=== PATIENT | female | born 1940 | race Caucasian/White ===

== ENCOUNTER → 2018-12-01 13:50 | Outpatient (CLI) | payer OTHER, SELFPAY ==
--- NOTE | 2018-12-15 16:16 | P.HOLT.S_ITS ---
Accounts Supervisor Report Referral & Results Date Patient Seen: 12/01/18 Requesting provider: Shawanda Escalera Indication: Palpitations Duration of monitoring (days): 8 Diary information: There is 1 patient diary entry associated with sinus rhythm, PACs and PVCs within 45 seconds of entry There 5 patient triggered events associated with sinus rhythm, PACs, PVCs, and SVT/ectopic atrial tachycardia within 45 seconds of triggers Data: Minimum heart rate identified was 43 beats per minute at 09:22 on 12/05/2018 Maximum sinus heart rate was 111 beats per minute at 07:59 on 12/06/2018 Maximum overall heart rate was 171 beats per minute at 00:37 on 12/03/2018 which occurred during a 4 beat run of SVT Patient had approximately 3% of identified beats as PACs Patient had rare PVCs SVT/ectopic atrial rhythms were present with 18 runs occurring longest lasting 17 beats Impression: Patient with PACs and PVCs both connected to diary entries and/or triggered events. Patient with other dysrhythmia as above. Difficult to sort out 1 specific etiology for patient's reported symptoms of palpitations Clinical correlation suggested
== END ==
PROVIDERS: PCP Family Medicine; Visit Provider Family Medicine
DX: R00.2 Palpitations (principal)
CPT/HCPCS: 0296T; 0298T

== ENCOUNTER → 2019-01-03 10:56 | Outpatient (CLI) | payer OTHER, SELFPAY | PROVIDERS: PCP Family Medicine; Visit Provider Family Medicine ==

== ENCOUNTER → 2019-02-09 12:37 | Outpatient (CLI) | payer OTHER, SELFPAY ==
[2019-02-09 13:12] LABS: Erythrocyte Sedimentation Rate 29 MM/HR (0-20)
[2019-02-09 13:21] LABS: Blood Urea Nitrogen 15 mg/dL (7-17); Carbon Dioxide 29 mmol/L (22-32); Chloride 102 mmol/L (98-107); Estimated Glomerular Filt Rate > 60.0 mL/min (>60); Glucose 92 mg/dL (80-110); HEMOLYSIS < 15 (0-50); Potassium 4.6 mmol/L (3.4-5.1); Sodium 138 mmol/L (137-145)
== END ==
PROVIDERS: Family Provider Hospitalist; PCP Family Medicine; Visit Provider Family Medicine
DX: Z01.812 Encounter for preprocedural laboratory examination (principal); M79.10 Myalgia, unspecified site
CPT/HCPCS: 36415; 80048; 85651

== ENCOUNTER → 2019-02-22 12:05 | Outpatient (CLI) | payer OTHER, SELFPAY ==
--- NOTE | 2019-02-22 12:07 | DI.CT.S_ITS ---
PROCEDURE: CT CHEST W CON INDICATIONS: lung nodule TECHNIQUE: After the administration of intravenous contrast, 5 mm thick sections acquired from the pulmonary apices to the posterior costophrenic angles. 1 mm axial lung, 5 mm thick coronal and sagittal reformats and 7 mm axial MIP were acquired. For radiation dose reduction, the following was used: automated exposure control, adjustment of mA and/or kV according to patient size. COMPARISON: [facility], CR, CHEST 2 VIEW, 03/13/2012, 16:07. Outside Facility, RG, XR CXR 2V, 11/27/2018, 14:15. FINDINGS: Image quality: Excellent. Lungs and pleura: No acute consolidation. Scattered scarring/atelectasis. Round 1.7 x 1.5 cm nodule seen within the posterior right upper lobe adjacent to the fissure. This was present on prior comparison radiographs dating back to 03/13/12. No pleural effusions or pneumothorax. Central and peripheral airways are patent and normal in caliber. Mediastinum: Heart size is enlarged. Coronary artery calcifications are present. No pericardial effusion. No mediastinal or hilar adenopathy by size criteria. Thoracic aorta and central pulmonary arteries are normal in size. Esophagus is normal in caliber. No hiatal hernia. Bones and chest wall: No suspicious bony lesions. No vertebral body compression fractures. No axillary or supraclavicular adenopathy by size criteria. Abdomen: Visualized upper abdominal solid organs appear normal. Upper abdominal bowel loops are normal in caliber. IMPRESSION: Unchanged right upper lobe pulmonary nodule dating back to 03/13/12 therefore presumed benign granulomatous sequela. Dictated by: Deangelo Esparza M.D. on 02/22/2019 at 15:38 Approved by: Deangelo Esparza M.D. on 02/22/2019 at 15:48
== END ==
PROVIDERS: PCP Family Medicine; Visit Provider Family Medicine
DX: R91.1 Solitary pulmonary nodule (principal); I51.7 Cardiomegaly; I25.10 Atherosclerotic heart disease of native coronary artery without angina pectoris
CPT/HCPCS: 71260; Q9967

== ENCOUNTER → 2019-07-25 14:22 | Outpatient (CLI) | payer OTHER, SELFPAY ==
--- NOTE | 2019-07-25 14:23 | DI.MG.S_ITS ---
BILATERAL DIGITAL SCREENING MAMMOGRAM 3D/2D WITH CAD: 07/25/2019 CLINICAL: Routine screening. Family history of breast cancer. Comparison is made to exams dated: 01/28/2018 mammogram, 01/15/2017 mammogram, and 10/09/2015 mammogram - [facility]. There are scattered fibroglandular elements in both breasts. Current study was also evaluated with a Computer Aided Detection (CAD) system. No significant masses, calcifications, or other findings are seen in either breast. There has been no significant interval change. IMPRESSION: NEGATIVE There is no mammographic evidence of malignancy. A 1 year screening mammogram is recommended. This exam was interpreted at Station ID: [id number]. NOTE: For mammograms, a report in lay terms will be sent to the patient. Approximately 15% of breast malignancies will not be visualized mammographically. In the management of a palpable breast mass, a negative mammogram must not discourage biopsy of a clinically suspicious lesion. Electronically Signed By: Jin schreiber/valeria:07/25/2019 18:10:46 letter sent: Normal Exam ACR BI-RADS Category 1: Negative 3341F
== END ==
PROVIDERS: PCP Family Medicine; Visit Provider Family Medicine
DX: Z12.31 Encounter for screening mammogram for malignant neoplasm of breast (principal); Z80.3 Family history of malignant neoplasm of breast; M85.852 Other specified disorders of bone density and structure, left thigh; Z78.0 Asymptomatic menopausal state; M35.3 Polymyalgia rheumatica; E07.9 Disorder of thyroid, unspecified; Z79.52 Long term (current) use of systemic steroids; Z90.722 Acquired absence of ovaries, bilateral
CPT/HCPCS: 77063; 77067; 77080

== ENCOUNTER → 2020-03-08 13:49 | Outpatient (CLI) | payer MEDICARE, SELFPAY ==
[2020-03-08 16:40] LABS: Alanine Aminotransferase 23 IU/L (<35); Albumin 4.3 g/dL (3.5-5.0); Albumin Globulin Ratio 1.5 (1.0-2.8); Alkaline Phosphatase 72 U/L (38-126); Aspartate Aminotransferase 30 IU/L (14-36); BUN Creatinine Ratio 21.3 (6-22); Bilirubin Total 0.7 mg/dL (0.2-1.3); Blood Urea Nitrogen 13 mg/dL (7-17); Calcium 9.5 mg/dL (8.4-10.2); Carbon Dioxide 27 mmol/L (22-32); Chloride 103 mmol/L (98-107); Cholesterol 188 mg/dL (140-199); Estimated Glomerular Filt Rate > 60.0 mL/min (>60); Globulin 2.9 g/dL (1.7-4.1); Glucose 115 mg/dL (80-110); HDL Cholesterol 63 mg/dL (40-60); HEMOLYSIS < 15 (0-50); LDL Cholesterol Calculated 102 mg/dL (<100); Potassium 4.1 mmol/L (3.4-5.1); Sodium 137 mmol/L (137-145); Total Protein 7.2 g/dL (6.3-8.2); Triglycerides 114 mg/dL (35-150)
[2020-03-08 17:06] LABS: TSH w/ Reflex to FT4 2.08 uIU/mL (0.47-4.68)
== END ==
PROVIDERS: PCP Family Medicine; Referring Provider Family Medicine; Visit Provider Family Medicine
DX: Z12.11 Encounter for screening for malignant neoplasm of colon (principal); Z13.220 Encounter for screening for lipoid disorders; Z13.228 Encounter for screening for other metabolic disorders; Z13.29 Encounter for screening for other suspected endocrine disorder; E78.5 Hyperlipidemia, unspecified; E03.9 Hypothyroidism, unspecified
CPT/HCPCS: 36415; 80053; 80061; 84443

== ENCOUNTER → 2020-03-13 15:46 | Outpatient (CLI) | payer MEDICARE, SELFPAY ==
[2020-03-14 10:17] LABS: Fecal Immunochemical Test Negative (Negative)
== END ==
PROVIDERS: PCP Family Medicine; Referring Provider Family Medicine; Visit Provider Family Medicine
DX: Z12.11 Encounter for screening for malignant neoplasm of colon (principal); Z13.220 Encounter for screening for lipoid disorders; Z13.228 Encounter for screening for other metabolic disorders; Z13.29 Encounter for screening for other suspected endocrine disorder
CPT/HCPCS: 82274

== ENCOUNTER → 2020-12-17 13:20 | Outpatient (ROUT) | payer MEDICARE, SELFPAY ==
[2020-12-17 15:56] LABS: Occult Blood 1 Negative (Negative)
[2020-12-17 17:03] LABS: Clostridium Difficile Tox PCR Negative for C. diff
== END ==
PROVIDERS: PCP Family Medicine; Visit Provider Registered Nurse Diabetes Educator
DX: K52.9 Noninfective gastroenteritis and colitis, unspecified (principal)
CPT/HCPCS: 82270; 87045; 87177; 87493; 87899

== ENCOUNTER → 2021-03-14 09:01 | Outpatient (CLI) | payer MEDICARE, SELFPAY ==
[2021-03-14 10:29] LABS: Add Manual Diff / Slide Review NO; Basophils Absolute Auto 0 /uL (0-100); Basophils Percent Auto 0.7 % (0-2); Eosinophils Absolute Auto 300 /uL (0-450); Eosinophils Percent Auto 5.1 % (2-4); Hematocrit 38.7 % (36-46); Hemoglobin 13.2 g/dL (12.0-16.0); Lymphocytes Absolute Auto 1500 /uL (1100-4500); Lymphocytes Percent Auto 24.1 % (25-40); Mean Corpuscular HGB Conc 34.1 % (30-36); Mean Corpuscular Hemoglobin 30.7 PG (26-34); Monocytes Absolute Auto 600 /uL (0-900); Monocytes Percent Auto 8.8 % (3-14); Neutrophils Absolute Auto 3900 /uL (1500-7000); Neutrophils Percent Auto 61.3 % (50-75); Platelet Count 255 X10^3/uL (150-400); White Blood Cell Count 6.4 X10^3/uL (4.5-11.0)
[2021-03-14 11:02] LABS: Erythrocyte Sedimentation Rate 18 MM/HR (0-20)
[2021-03-14 11:30] LABS: Alanine Aminotransferase 21 IU/L (<35); Albumin 4.3 g/dL (3.5-5.0); Albumin Globulin Ratio 1.7 (1.0-2.8); Alkaline Phosphatase 70 U/L (38-126); Aspartate Aminotransferase 29 IU/L (14-36); BUN Creatinine Ratio 27.8 (6-22); Bilirubin Total 0.5 mg/dL (0.2-1.3); Blood Urea Nitrogen 15 mg/dL (7-17); C-Reactive Protein Quant 0.5 mg/dL (<1.0); Calcium 9.5 mg/dL (8.4-10.2); Carbon Dioxide 26 mmol/L (22-32); Chloride 104 mmol/L (98-107); Cholesterol 256 mg/dL (140-199); Estimated Glomerular Filt Rate > 60.0 mL/min (>60); Globulin 2.6 g/dL (1.7-4.1); Glucose 117 mg/dL (80-110); HDL Cholesterol 81 mg/dL (40-60); HEMOLYSIS < 15 (0-50); LDL Cholesterol Calculated 158 mg/dL (<100); Potassium 4.8 mmol/L (3.4-5.1); Sodium 137 mmol/L (137-145); Total Protein 6.9 g/dL (6.3-8.2); Triglycerides 86 mg/dL (35-150)
[2021-03-14 12:22] LABS: Free T4, Direct Thyroxine 1.43 ng/dL (0.78-2.19)
== END ==
PROVIDERS: PCP Family Medicine; Referring Provider Family Medicine; Visit Provider Family Medicine
DX: E03.9 Hypothyroidism, unspecified (principal); E78.5 Hyperlipidemia, unspecified; I49.3 Ventricular premature depolarization; M35.3 Polymyalgia rheumatica
CPT/HCPCS: 36415; 80053; 80061; 84439; 84443; 85025; 85651; 86140

== ENCOUNTER → 2021-03-24 12:59 | Outpatient (CLI) | payer MEDICARE, SELFPAY ==
--- NOTE | 2021-03-24 13:00 | DI.US.S_ITS ---
PROCEDURE: US EXTREMITY NONVASC UPPER LT INDICATIONS: LEFT WRIST NODULE TECHNIQUE: Real-time scanning was performed of the left wrist , with image documentation. COMPARISON: None. FINDINGS: Overall, no sonographic correlate to the palpable abnormality involving the base of thumb. There is a simple appearing fluid adjacent to the tendinous region raising the possibility of tenosynovitis. IMPRESSION: No discrete mass identified. Small amount of peritendinous fluid most likely related to tenosynovitis. This could be further evaluated with dedicated MRI as clinically necessary. Dictated by: Deangelo Esparza M.D. on 03/24/2021 at 14:14 Approved by: Deangelo Esparza M.D. on 03/24/2021 at 14:15
== END ==
PROVIDERS: PCP Family Medicine; Referring Provider Family Medicine; Visit Provider Family Medicine
DX: R22.32 Localized swelling, mass and lump, left upper limb (principal)
CPT/HCPCS: 76882

== ENCOUNTER → 2021-04-23 17:35 | Outpatient (CLI) | payer MEDICARE, SELFPAY ==
--- NOTE | 2021-04-23 17:38 | DI.CT.S_ITS ---
PROCEDURE: CT UE LT WO CON INDICATIONS: left wrist swelling TECHNIQUE: Noncontrast 1 mm axial sections acquired through the carpal bones, with coronal and sagittal reformats. COMPARISON: [facility], , EXTREMITY NONVASC UPPER LT, 03/24/2021, 13:05. FINDINGS: Image quality: Excellent. Bones: Wrist alignment is anatomic. Moderate osteoarthritic changes throughout wrist joints are seen most prominent involving scaphoid trapezial joint and 1st CMC joint with significant joint space narrowing, extensive subchondral sclerosis and cyst formation as well as prominent marginal osteophyte formation. Nonspecific subcortical cyst formation in distal radius, lunate, proximal capitate, distal scaphoid and adjacent trapezium as well as 1st metacarpal base are seen. No evidence of osteonecrosis. No acute fracture or dislocation. No suspicious intraosseous lesion. Soft tissues: No discrete soft tissue mass or drainable fluid collection is seen. Fluid within tendon sheath of extensor carpi ulnaris tendon adjacent to ulnar styloid is noted suggestive of tenosynovitis. There is also small amount of radiocarpal and ulnar carpal joint fluid, no calcified intra-articular loose body. No abnormal soft tissue calcifications. There is also suggestion of small amount of fluid distending tendon sheath of flexor tendons at the level of carpal tunnel which may indicate tenosynovitis. No gross full-thickness tendon rupture is seen. IMPRESSION: 1. Finding is concerning for tenosynovitis involving extensor carpi ulnaris tendon as well as flexor tendons as above. No full-thickness tendon rupture. No abnormal soft tissue calcifications. Small amount of radiocarpal and ulnar carpal joint fluid, no calcified intra-articular loose body. 2. No discrete soft tissue mass or drainable fluid collection is identified. 3. Osteoarthritic changes throughout wrist joints as above. Nonspecific subcortical cyst formation scattered in carpal bones and metacarpal bases, erosion secondary to inflammatory arthropathy cannot be excluded. No suspicious intraosseous lesion. No fracture or dislocation. Dictated by: Weston Eason M.D. on 04/24/2021 at 9:01 Approved by: Weston Eason M.D. on 04/24/2021 at 9:54
--- NOTE | 2021-04-23 17:38 | DI.MG.S_ITS ---
BILATERAL DIGITAL SCREENING MAMMOGRAM 3D/2D WITH CAD: 04/23/2021 CLINICAL: Routine screening. Family history of breast cancer. Comparison is made to exams dated: 07/25/2019 mammogram - [facility], 01/28/2018 mammogram, and 01/15/2017 mammogram - [facility]. There are scattered fibroglandular elements in both breasts. Current study was also evaluated with a Computer Aided Detection (CAD) system. There is a stable benign focal asymmetry in the left breast. No significant masses, calcifications, or other findings are seen in either breast. There has been no significant interval change. IMPRESSION: BENIGN There is no mammographic evidence of malignancy. A 1 year screening mammogram is recommended. This exam was interpreted at Station ID: [id number]. NOTE: For mammograms, a report in lay terms will be sent to the patient. Approximately 15% of breast malignancies will not be visualized mammographically. In the management of a palpable breast mass, a negative mammogram must not discourage biopsy of a clinically suspicious lesion. Electronically Signed By: Rhett Parker acr/penrad:04/24/2021 08:04:11 letter sent: Normal Exam ACR BI-RADS Category 2: Benign Finding(s) 3342F
== END ==
PROVIDERS: PCP Family Medicine; Referring Provider Family Medicine; Visit Provider Family Medicine
DX: Z12.31 Encounter for screening mammogram for malignant neoplasm of breast (principal); Z80.3 Family history of malignant neoplasm of breast; R22.32 Localized swelling, mass and lump, left upper limb; E03.9 Hypothyroidism, unspecified; E78.5 Hyperlipidemia, unspecified; I10 Essential (primary) hypertension
CPT/HCPCS: 73200; 77063; 77067

== ENCOUNTER → 2021-06-05 08:04 | Outpatient (CLI) | payer MEDICARE, SELFPAY ==
[2021-06-05 08:49] LABS: Alanine Aminotransferase 20 IU/L (<35); Albumin 4.2 g/dL (3.5-5.0); Albumin Globulin Ratio 1.6 (1.0-2.8); Alkaline Phosphatase 68 U/L (38-126); Aspartate Aminotransferase 30 IU/L (14-36); BUN Creatinine Ratio 20.4 (6-22); Bilirubin Total 0.6 mg/dL (0.2-1.3); Blood Urea Nitrogen 11 mg/dL (7-17); Calcium 9.3 mg/dL (8.4-10.2); Carbon Dioxide 26 mmol/L (22-32); Chloride 105 mmol/L (98-107); Estimated Glomerular Filt Rate > 60.0 mL/min (>60); Globulin 2.6 g/dL (1.7-4.1); Glucose 123 mg/dL (80-110); HEMOLYSIS < 15 (0-50); Potassium 4.3 mmol/L (3.4-5.1); Sodium 139 mmol/L (137-145); Total Protein 6.8 g/dL (6.3-8.2)
[2021-06-05 09:57] LABS: TSH w/ Reflex to FT4 1.22 uIU/mL (0.47-4.68)
== END ==
PROVIDERS: PCP Family Medicine; Referring Provider Family Medicine; Visit Provider Family Medicine
DX: E03.9 Hypothyroidism, unspecified (principal); E78.5 Hyperlipidemia, unspecified; I47.1 Supraventricular tachycardia; K52.9 Noninfective gastroenteritis and colitis, unspecified
CPT/HCPCS: 36415; 80053; 84443

== ENCOUNTER → 2022-06-26 11:05 | Outpatient (CLI) | payer MEDICARE, SELFPAY ==
[2022-06-26 11:52] LABS: Add Manual Diff / Slide Review NO; Basophils Absolute Auto 0 /uL (0-100); Basophils Percent Auto 0.8 % (0-2); Eosinophils Absolute Auto 200 /uL (0-450); Eosinophils Percent Auto 3.3 % (2-4); Hematocrit 37.7 % (36-46); Hemoglobin 12.6 g/dL (12.0-16.0); Lymphocytes Absolute Auto 1600 /uL (1100-4500); Lymphocytes Percent Auto 36.2 % (25-40); Mean Corpuscular HGB Conc 33.3 % (30-36); Mean Corpuscular Hemoglobin 30.3 PG (26-34); Mean Corpuscular Volume 90.9 fL (80-100); Monocytes Absolute Auto 400 /uL (0-900); Monocytes Percent Auto 9.4 % (3-14); Neutrophils Absolute Auto 2300 /uL (1500-7000); Neutrophils Percent Auto 50.3 % (50-75); Platelet Count 286 X10^3/uL (150-400); Red Blood Cell Count 4.15 X10^6/uL (4.0-5.2); Red Cell Distribution Width 13.6 % (11.6-14.8); White Blood Cell Count 4.5 X10^3/uL (4.5-11.0)
[2022-06-26 12:39] LABS: Alanine Aminotransferase 26 IU/L (<35); Albumin 4.1 g/dL (3.5-5.0); Albumin Globulin Ratio 1.5 (1.0-2.8); Alkaline Phosphatase 78 U/L (38-126); Aspartate Aminotransferase 29 IU/L (14-36); BUN Creatinine Ratio 17.2 (6-22); Bilirubin Total 0.6 mg/dL (0.2-1.3); Blood Urea Nitrogen 10 mg/dL (7-17); Calcium 8.9 mg/dL (8.4-10.2); Carbon Dioxide 29 mmol/L (22-32); Chloride 104 mmol/L (98-107); Cholesterol 179 mg/dL (140-199); Estimated Glomerular Filt Rate > 60 mL/min (>60); Globulin 2.7 g/dL (1.7-4.1); Glucose 109 mg/dL (80-110); HDL Cholesterol 69 mg/dL (40-60); HEMOLYSIS < 15 (0-50); LDL Cholesterol Calculated 92 mg/dL (<100); Potassium 4.3 mmol/L (3.4-5.1); Sodium 139 mmol/L (137-145); Total Protein 6.8 g/dL (6.3-8.2); Triglycerides 88 mg/dL (35-150)
[2022-06-26 13:08] LABS: TSH w/ Reflex to FT4 0.69 uIU/mL (0.47-4.68)
== END ==
PROVIDERS: PCP Family Medicine; Referring Provider Family Medicine; Visit Provider Family Medicine
DX: E03.9 Hypothyroidism, unspecified (principal); E78.5 Hyperlipidemia, unspecified; I10 Essential (primary) hypertension
CPT/HCPCS: 36415; 80053; 80061; 84443; 85025

== ENCOUNTER → 2022-07-08 08:58 | Outpatient (CLI) | payer MEDICARE, SELFPAY ==
[2022-07-08 09:56] LABS: COVID19 -Nasal RAPID Negative (Negative)
--- NOTE | 2022-07-08 18:22 | DI.NM.S_ITS ---
DATE OF SERVICE: PROCEDURE: Pharmacological perfusion study. INDICATION: Paroxysmal atrial fibrillation with underlying left bundle-branch block. RADIOPHARMACEUTICAL: 26.7 mCi technetium-99m Myoview IV was injected at stress and 11.5 mCi technetium-99m Myoview IV was injected at rest. CARDIAC STRESS: The patient underwent IV Lexiscan perfusion study under the supervision of an attending staff using standard intravenous Lexiscan as per protocol. Baseline blood pressure 126/84. Baseline rhythm sinus with left bundle-branch block and PACs. During IV Lexiscan, no new convincing ischemic changes seen. The patient has occasional PVCs. No ventricular tachycardia or obvious Afib. No chest pain. Had minimal dyspnea. RAW DATA: Breast shadow was seen. GATED STUDY: Stress LV ejection fraction 70 percent without any obvious wall motion abnormalities. Resting end-diastolic volume 121 mL. TID ratio 0.82, which is within normal limits. Lung/heart ratio 0.44, which is within normal limits. MYOCARDIAL PERFUSION SCAN: Stress supine, resting supine and stress prone images were compared to each other. Resting supine images revealed small to moderate size, moderately decreased perfusion of apex, distal anterior wall with extension into the distal anterior septum. The stress supine images revealed small size, mildly decreased perfusion of basal inferior wall, apex as well as distal anterior septum. During stress prone images, there was significant improvement of the perfusion defect as stated above. Apical perfusion defects improved. Basal inferior wall defect improved. The patient had mildly decreased perfusion of distal anterior septum. No reversible ischemia. CONCLUSION: I will call this study likely a normal myocardial perfusion study with evidence of breast tissue attenuation artifact as well as some artifact due to left bundle-branch block, which got significantly improved during stress prone images. No convincing ischemia or infarction. Preserved left ventricular function. No transient ischemic dilatation. Overall low-risk myocardial perfusion scan. Gayathri Ho - TETO/james/GRIS doc#: [id number]/job#: [id number] dd: 07/08/2022 16:55:00 dt: 07/08/2022 18:07:00 DICTATING MD/COPIES TO: Homero Mccormack MD COPIES MNE: JAMES;
== END ==
PROVIDERS: PCP Family Medicine; Referring Provider Nurse Practitioner; Visit Provider Nurse Practitioner
DX: I44.7 Left bundle-branch block, unspecified; I48.0 Paroxysmal atrial fibrillation; Z20.822 Contact with and (suspected) exposure to COVID-19
CPT/HCPCS: 78452; 87635; 93017; A9502; J2785

== ENCOUNTER → 2022-08-24 09:33 | Outpatient (CLI) | payer MEDICARE, SELFPAY ==
[2022-08-24 10:45] LABS: Hemoglobin A1C% w Est Avg Glu 5.9 % (4.0-6.0)
[2022-08-24 10:48] LABS: Alanine Aminotransferase 23 IU/L (<35); Albumin 4.3 g/dL (3.5-5.0); Albumin Globulin Ratio 1.5 (1.0-2.8); Alkaline Phosphatase 80 U/L (38-126); Aspartate Aminotransferase 22 IU/L (14-36); BUN Creatinine Ratio 22.5 (6-22); Bilirubin Total 0.7 mg/dL (0.2-1.3); Blood Urea Nitrogen 16 mg/dL (7-17); Calcium 9.4 mg/dL (8.4-10.2); Carbon Dioxide 27 mmol/L (22-32); Chloride 98 mmol/L (98-107); Estimated Glomerular Filt Rate > 60 mL/min (>60); Globulin 2.8 g/dL (1.7-4.1); Glucose 130 mg/dL (80-110); HEMOLYSIS < 15 (0-50); Potassium 4.5 mmol/L (3.4-5.1); Sodium 135 mmol/L (137-145); Total Protein 7.1 g/dL (6.3-8.2)
== END ==
PROVIDERS: PCP Family Medicine; Referring Provider Family Medicine; Visit Provider Family Medicine
DX: R73.9 Hyperglycemia, unspecified (principal); E03.9 Hypothyroidism, unspecified; I10 Essential (primary) hypertension; I35.0 Nonrheumatic aortic (valve) stenosis; I48.91 Unspecified atrial fibrillation; I49.3 Ventricular premature depolarization
CPT/HCPCS: 36415; 80053; 83036

== ENCOUNTER → 2023-06-05 | Outpatient (CLI) | payer MEDICARE, SELFPAY ==
--- NOTE | 2023-06-05 11:19 | DI.MG.S_ITS ---
BILATERAL DIGITAL SCREENING MAMMOGRAM 3D/2D WITH CAD: 06/05/2023 CLINICAL: Routine screening. Family history of breast cancer. Comparison is made to exams dated: 04/23/2021 mammogram, 07/25/2019 mammogram - [facility], and 01/28/2018 mammogram - [facility]. There are scattered areas of fibroglandular density in both breasts (category b / 25%-50% glandular tissue). Current study was also evaluated with a Computer Aided Detection (CAD) system. No significant masses, calcifications, or other findings are seen in either breast. IMPRESSION: NEGATIVE There is no mammographic evidence of malignancy. A 1 year screening mammogram is recommended. Based on the Tyrer Cuzick model (a risk assessment model) the patient's lifetime risk is 1.4% and her 10 year risk is 0.0%. According to the ACR, ACS, and NCCN guidelines, an annual breast MRI exam along with mammogram is recommended if the patient's lifetime risk is 20% or greater. This exam was interpreted at Station ID: [id number]. NOTE: For mammograms, a report in lay terms will be sent to the patient. Approximately 15% of breast malignancies will not be visualized mammographically. In the management of a palpable breast mass, a negative mammogram must not discourage biopsy of a clinically suspicious lesion. Electronically Signed By: Grace Lares M.D., PH.D david/valeria:06/07/2023 19:31:17 letter sent: Normal Exam ACR BI-RADS Category 1: Negative 3341F
== END ==
LOC: MAMMO 11:18
PROVIDERS: PCP Family Medicine; Referring Provider Family Medicine; Visit Provider Family Medicine
DX: Z12.31 Encounter for screening mammogram for malignant neoplasm of breast (principal); Z80.3 Family history of malignant neoplasm of breast
CPT/HCPCS: 77063; 77067

== ENCOUNTER 2023-07-20 19:08 | Emergency (ER) | payer MEDICARE, SELFPAY ==
[2023-07-20] VITALS (9 sets, daily range): BP systolic 137–193; BP diastolic 63–79; PULSE 65–79; RESP 18; TEMP 36.8; O2SAT 96–100; BMI 26.3
--- NOTE | 2023-07-20 19:16 | DI.CT.S_ITS ---
PROCEDURE: CT CERVICAL SPINE WO CON INDICATIONS: fall on thinners TECHNIQUE: Noncontrast 3 mm thick sections acquired from the skull base to the T4 level. Sagittal and coronal reformats were then constructed. For radiation dose reduction, the following was used: automated exposure control, adjustment of mA and/or kV according to patient size. COMPARISON: None. FINDINGS: Image quality: Excellent. Bones: No acute fractures or dislocations. No acute compression fractures of the vertebral bodies. Craniocervical junction is intact. C1-C2 relationship is preserved. Visualized superior ribs are intact. Advanced multilevel cervical spondylosis with partial osseous fusion across C3 through C5. No asymmetric widening of the posterior elements. Soft tissues: Prevertebral soft tissues are normal in thickness. No paravertebral hematomas. No apical pneumothoraces. IMPRESSION: No displaced fracture or traumatic subluxation. Dictated by: Joshua Smith M.D. on 07/20/2023 at 20:39 Approved by: Joshua Smith M.D. on 07/20/2023 at 20:42
--- NOTE | 2023-07-20 19:16 | DI.CT.S_ITS ---
PROCEDURE: CT HEAD/BRAIN WO CON INDICATIONS: fall on thinners TECHNIQUE: Noncontrast 4.5 mm thick angled axial sections acquired from the foramen magnum to the vertex, with coronal and sagittal reformats. For radiation dose reduction, the following was used: automated exposure control, adjustment of mA and/or kV according to patient size. COMPARISON: None. FINDINGS: Image quality: Diagnostic. CSF spaces: Basal cisterns are patent. No extra-axial fluid collections. The ventricles are symmetric in size and shape. Brain: No intracranial bleeds or masses. There is cerebral volume loss for age, with resultant ventricular and sulcal prominence. There are periventricular and deep white matter chronic small vessel ischemic changes. There is intracranial internal carotid artery atherosclerosis. Skull and face: Calvarium and visualized facial bones appear intact, without suspicious lesions. Sinuses: Visualized sinuses and mastoids are clear. IMPRESSION: 1. CT head without acute intracranial abnormalities or acute calvarial fractures. 2. Age-related senescent changes and sequela of chronic small vessel ischemic disease. Dictated by: Joshua Smith M.D. on 07/20/2023 at 20:37 Approved by: Joshua Smith M.D. on 07/20/2023 at 20:39
--- NOTE | 2023-07-20 20:08 | PC.NURSE ---
Pt has bump just above right eyebrow. no wound visible but does have minor discoloration to area.
--- NOTE | 2023-07-20 21:11 | ED_ITS ---
HPI - Fall General Chief Complaint: Fall Stated Complaint: GLF rknee and head on blood thinners Time Seen by Provider: 07/20/23 19:33 Source: patient Mode of arrival: Ambulatory History of Present Illness HPI Narrative: Patient is an 82-year-old female. Is on anticoagulation. Is here for evaluation of pain to her right knee and also a bruise above her right eye after she fell and hit her head. No neck pain. No other extremity injuries. No loss of consciousness. At the time of my exam she has already had CT scans. She has full range motion of her right knee. Is ambulatory. Related Data Home Medications Medication Instructions Recorded Confirmed apixaban 5 mg tablet (Eliquis) 5 mg PO BID 08/06/22 06/28/23 losartan 25 mg tablet 25 mg PO DAILY 04/13/23 06/28/23 Previous Rx's Medication Instructions Recorded levothyroxine 137 mcg tablet See Rx Instructions .Route 09/28/22 .COMPLEX #90 tabs atorvastatin 20 mg tablet See Rx Instructions .Route 12/07/22 .COMPLEX #90 tabs metoprolol succinate 50 mg 50 mg PO BID #60 tabs 03/16/23 tablet,extended release 24 hr cephalexin 500 mg capsule 500 mg PO Q8H #30 caps 06/28/23 Lacto no.21-Bifido no.7 50 billion 1 cap PO DAILY #90 caps 07/06/23 cell-inulin 50 mg capsule,delay rel (Fortify Probiotic 50 Plus) melatonin 10 mg tablet 10 mg PO BEDTIME PRN sleep #90 tabs 07/06/23 Allergies Allergy/AdvReac Type Severity Reaction Status Date / Time Iodinated Contrast Media Allergy Rapid Verified 06/28/23 10:01 [Iodinated Contrast- Oral Heart Rate and IV Dye] quinidine AdvReac Mild Verified 06/28/23 10:01 hydrocodone [From Vicodin] AdvReac itchy Verified 06/28/23 10:01 Review of Systems Constitutional Constitutional: Reports system reviewed and no additional complaints, except as documented Eyes Eyes: Reports system reviewed and no additional complaints, except as documented Cardiovascular Cardiovascular: Reports system reviewed and no additional complaints, except as documented Respiratory Respiratory: Reports system reviewed and no additional complaints, except as documented Integumentary/Breasts Skin/Breast: Reports system reviewed and no additional complaints, except as documented Neurologic Neurologic: Reports system reviewed and no additional complaints, except as documented Hematologic/Lymphatic On Anticoagulants: Yes Patient History Medical History Microscopic colitis, unspecified Conjunctivitis Hypokalemia Atrial fibrillation Aortic stenosis Symptomatic PVCs Insomnia Hypothyroidism (acquired) Hyperlipidemia Hypertension Hearing loss Rheumatoid arthritis Osteoarthritis Musculoskeletal problem (~1999) Fibromyalgia (~1999) Mumps Measles Chicken pox (~194) Tinnitus (~1999) Fibroids (~1970) History of urinary incontinence (~2006) Surgical History Anesthesia History of lumpectomy History of hysterectomy (~1994) Status post removal of thyroid nodule (~1970) Family History Father Cancer Mother History of heart disease Brother Cancer Grandfather Cancer Grandmother No problems noted. Grandfather No problems noted. Social History Smoking Status: Never smoker alcohol intake: current substance use type: does not use Smoking Status: Never smoker Substance Use Type: does not use Exam Initial Vital Signs Initial Vital Signs: Vital Signs Temperature 98.3 F 07/20/23 19:11 Pulse Rate 79 07/20/23 19:11 Respiratory Rate 18 07/20/23 19:11 Blood Pressure 193/79 H 07/20/23 19:11 Pulse Oximetry 98 07/20/23 19:11 Oxygen Delivery Method Room Air 07/20/23 19:11 HENMT Head: normal to inspection and normocephalic Eyes Other: Small contusion above the right eye. No step-offs around the orbital rim. Resp Effort & Inspection: normal respiratory effort Cardio Rate: regular rate Skin Other: Small contusion above right eye. Neuro General: patient alert, patient awake, patient oriented x3 and moves all extremities Scores GCS [place] coma scale eye opening: Spontaneous [place] coma scale verbal response: Orientated [place] coma scale motor response: Obey commands [place] coma scale total score: 15 Course Orders Ordered: ED Orders 07/20/23 19:16 CT cervical spine wo con Stat CT head/brain wo con Stat Vital Signs Vital signs: Vital Signs - 8 hr 07/20/23 19:34 07/20/23 19:36 07/20/23 19:36 Pulse Rate 74 71 Respiratory Rate Blood Pressure 156/67 H Pulse Oximetry 100 98 07/20/23 20:00 07/20/23 20:01 07/20/23 20:01 Pulse Rate 68 68 Respiratory Rate 18 Blood Pressure 143/64 H Pulse Oximetry 97 97 07/20/23 20:30 07/20/23 20:31 07/20/23 20:31 Pulse Rate 66 65 Respiratory Rate Blood Pressure 137/63 Pulse Oximetry 96 97 07/20/23 21:00 07/20/23 21:01 07/20/23 21:01 Pulse Rate 78 78 Respiratory Rate 18 Blood Pressure 162/70 H Pulse Oximetry 98 98 MDM - Fall Imaging Data CT - cervical spine: Radiologist's Impression: PROCEDURE: CT CERVICAL SPINE WO CON INDICATIONS: fall on thinners TECHNIQUE: Noncontrast 3 mm thick sections acquired from the skull base to the T4 level. S agittal and coronal reformats were then constructed. For radiation dose reduction, the following was used: automated exposure control, adjustment of mA and/or kV according to patient size. COMPARISON: None. FINDINGS: Image quality: Excellent. Bones: No acute fractures or dislocations. No acute compression fractures of the vertebral bodies. Craniocervical junction is intact. C1-C2 relationship is preserved. Visualized superior ribs are intact. Advanced multilevel cervical spondylosis with partial osseous fusion across C3 through C5. No asymmetric widening of the posterior elements. Soft tissues: Prevertebral soft tissues are normal in thickness. No paravertebral hematomas. No apical pneumothoraces. IMPRESSION: No displaced fracture or traumatic subluxation. CT scan - head: Radiologist's Impression: PROCEDURE: CT HEAD/BRAIN WO CON INDICATIONS: fall on thinners TECHNIQUE: Noncontrast 4.5 mm thick angled axial sections acquired from the foramen magnum to the vertex, with coronal and sagittal reformats. For radiation dose reduction, the following was used: automated exposure control, adjustment of mA and/or kV according to patient size. COMPARISON: None. FINDINGS: Image quality: Diagnostic. CSF spaces: Basal cisterns are patent. No extra-axial fluid collections. The ventricles are symmetric in size and shape. Brain: No intracranial bleeds or masses. There is cerebral volume loss for age, with resultant ventricular and sulcal prominence. There are periventricular and deep white matter chronic small vessel ischemic changes. There is intracranial internal carotid artery atherosclerosis. Skull and face: Calvarium and visualized facial bones appear intact, without suspicious lesions. Sinuses: Visualized sinuses and mastoids are clear. IMPRESSION: 1. CT head without acute intracranial abnormalities or acute calvarial fractures. 2. Age-related senescent changes and sequela of chronic small vessel ischemic disease. MDM Narrative Medical decision making narrative: CT scan of head neck are unremarkable. She does have full range motion of her right knee. No other extremity injuries. Has a small contusion above the right eye. No specific intervention needed here in the ER. Patient states she would like to go home. She was given return precautions. She expressed understanding and agreement. Discharge Plan Departure Patient Disposition: Home Clinical Impression: Contusion Instructions: DI for Contusion Activity Restrictions/Additional Instructions: Continue to take all of your medications as directed. Contact your primary doctor for a follow-up. Return to the emergency department for new or worsening symptoms. Prescriptions: No Action levothyroxine 137 mcg tablet See Rx Instructions .ROUTE .COMPLEX Qty: 90 3RF Dose Instruction: TAKE 1 TABLET BY MOUTH DAILY Rx Instructions: TAKE 1 TABLET BY MOUTH DAILY atorvastatin 20 mg tablet See Rx Instructions .ROUTE .COMPLEX Qty: 90 3RF Dose Instruction: TAKE 1 TABLET BY MOUTH DAILY FOR HYPERCHOLESTEROLEMIA. Rx Instructions: TAKE 1 TABLET BY MOUTH DAILY FOR HYPERCHOLESTEROLEMIA. metoprolol succinate 50 mg tablet extended release 24 hr 50 mg PO BID Qty: 60 3RF Fortify Probiotic 50 Plus 50 billion cell-50 mg capsule,delayed release(DR/EC) 1 cap PO DAILY Qty: 90 3RF Rx Instructions: Take 1 cap daily for microscopic colitis melatonin 10 mg tablet 10 mg PO BEDTIME PRN (Reason: sleep) Qty: 90 3RF Eliquis 5 mg tablet 5 mg PO BID losartan 25 mg tablet 25 mg PO DAILY cephalexin 500 mg capsule 500 mg PO Q8H Qty: 30 0RF Rx Instructions: Take 1 tab by mouth every 8 hours x10 days Referrals: Navin Ramsey MD [Primary Care Provider] - Stand Alone Forms: Patient Portal/API
== END 2023-07-20 21:18 | disposition home or self-care (01) ==
PROVIDERS: Emergency Provider Emergency Medicine; PCP Family Medicine
DX: S00.83XA Contusion of other part of head, initial encounter (principal); M25.561 Pain in right knee; W18.30XA Fall on same level, unspecified, initial encounter; Z79.01 Long term (current) use of anticoagulants
CPT/HCPCS: 70450; 72125; 99281; 99284

== ENCOUNTER → 2023-08-06 11:10 | Outpatient (CLI) | payer OTHER, SELFPAY ==
--- NOTE | 2023-08-06 11:12 | DI.RAD.S_ITS ---
PROCEDURE: XR KNEE LT 3V INDICATIONS: Bilateral Knee pain TECHNIQUE: 3 views of the knee were acquired. COMPARISON: None. FINDINGS: Bones: No fractures or dislocations. No suspicious bony lesions. Tricompartmental arthritic change moderate to severe in the medial compartment which is most prominent. Periarticular osteophytes are present. No erosions. Soft tissues: Mild joint effusion. No suspicious soft tissue calcifications. IMPRESSION: Tricompartmental arthritic change most severe medially. Dictated by: Noris Rendon M.D. on 08/06/2023 at 17:05 Approved by: Noris Rendon M.D. on 08/06/2023 at 17:05
--- NOTE | 2023-08-06 11:12 | DI.RAD.S_ITS ---
PROCEDURE: XR KNEE RT 3V INDICATIONS: Bilateral Knee pain TECHNIQUE: 3 views of the knee were acquired. COMPARISON: None. FINDINGS: Bones: No fractures or dislocations. No suspicious bony lesions. Moderate to severe tricompartmental arthritic change most severe medially. Periarticular osteophytes are present. Soft tissues: No joint effusion. No suspicious soft tissue calcifications. Faint appearance of chondrocalcinosis. IMPRESSION: Tricompartmental arthritic change. Dictated by: Noris Rendon M.D. on 08/06/2023 at 17:04 Approved by: Noris Rendon M.D. on 08/06/2023 at 17:05
[2023-08-06 11:51] LABS: Add Manual Diff / Slide Review NO; Basophils Absolute Auto 0 /uL (0-100); Basophils Percent Auto 0.5 % (0-2); Eosinophils Absolute Auto 200 /uL (0-450); Eosinophils Percent Auto 3.3 % (2-4); Hematocrit 37.7 % (36-46); Hemoglobin 12.8 g/dL (12.0-16.0); Lymphocytes Absolute Auto 1500 /uL (1100-4500); Lymphocytes Percent Auto 23.9 % (25-40); Mean Corpuscular HGB Conc 33.8 % (30-36); Mean Corpuscular Hemoglobin 30.7 PG (26-34); Mean Corpuscular Volume 90.7 fL (80-100); Monocytes Absolute Auto 600 /uL (0-900); Monocytes Percent Auto 9.2 % (3-14); Neutrophils Absolute Auto 3900 /uL (1500-7000); Neutrophils Percent Auto 63.1 % (50-75); Platelet Count 290 X10^3/uL (150-400); Red Blood Cell Count 4.15 X10^6/uL (4.0-5.2); Red Cell Distribution Width 13.3 % (11.6-14.8); White Blood Cell Count 6.2 X10^3/uL (4.5-11.0)
[2023-08-06 11:57] LABS: Hemoglobin A1C% w Est Avg Glu 5.8 % (4.0-6.0)
[2023-08-06 12:07] LABS: Alanine Aminotransferase 27 IU/L (<35); Albumin 4.4 g/dL (3.5-5.0); Albumin Globulin Ratio 1.4 (1.0-2.8); Alkaline Phosphatase 64 U/L (38-126); Aspartate Aminotransferase 31 IU/L (14-36); BUN Creatinine Ratio 19.7 (6-22); Bilirubin Total 0.6 mg/dL (0.2-1.3); Blood Urea Nitrogen 12 mg/dL (7-17); Calcium 9.5 mg/dL (8.4-10.2); Carbon Dioxide 25 mmol/L (22-32); Chloride 102 mmol/L (98-107); Cholesterol 167 mg/dL (140-199); Estimated Glomerular Filt Rate > 60 mL/min (>60); Globulin 3.1 g/dL (1.7-4.1); Glucose 121 mg/dL (80-110); HDL Cholesterol 71 mg/dL (40-60); HEMOLYSIS < 15 (0-50); LDL Cholesterol Calculated 74 mg/dL (<100); Potassium 4.1 mmol/L (3.4-5.1); Sodium 136 mmol/L (137-145); Total Protein 7.5 g/dL (6.3-8.2); Triglycerides 108 mg/dL (35-150)
[2023-08-06 12:36] LABS: TSH w/ Reflex to FT4 0.56 uIU/mL (0.47-4.68)
== END ==
PROVIDERS: PCP Family Medicine; Referring Provider Family Medicine; Visit Provider Family Medicine
DX: M25.561 Pain in right knee (principal); R73.9 Hyperglycemia, unspecified; E03.9 Hypothyroidism, unspecified; I48.91 Unspecified atrial fibrillation; M25.562 Pain in left knee; I35.0 Nonrheumatic aortic (valve) stenosis; E78.5 Hyperlipidemia, unspecified; I10 Essential (primary) hypertension; Z00.00 Encounter for general adult medical examination without abnormal findings
CPT/HCPCS: 36415; 73562; 80053; 80061; 83036; 84443; 85025

== ENCOUNTER 2023-09-08 23:40 | Emergency (ER) | payer OTHER, SELFPAY ==
[2023-09-08 23:40] VITALS: BP 185/79; PULSE 77; RESP 19; TEMP 36.4; O2SAT 97; BMI 26.9
--- NOTE | 2023-09-08 23:41 | ED.GENADULT ---
HPI - General Adult General Chief complaint: Hypertension Stated complaint: hypertension/headache Time Seen by Provider: 09/08/23 23:41 History of Present Illness HPI narrative: 82-year-old woman with a history of atrial fibrillation recent cardiac ablation, currently anticoagulated on apixaban, hyperlipidemia hypertension hypothyroidism and polymyalgia currently on 5 mg of prednisone who presents with elevated blood pressures and a headache that she states started at approximately 8:00 p.m. this evening behind her left cheek feeling like sinus infection. She does not have fevers, cough, chills, body aches or sore throat. She recently was seen by her picking tech and blood pressure medication is currently being adjusted. Apparently she was hospitalized at [facility] sometime in the last 6 months and noted to have low blood pressures at that time. In follow up she has had significantly elevated blood pressures. Her metoprolol 12.5 mg extended release b.i.d. was doubled to 25 mg b.i.d. and her losartan was doubled from 50 mg to 100 mg daily. Both of these changes went into affect today. This evening she ended up taking her blood pressure around midnight noted that it was elevated and called 911 due to her concern. She was not complaining of chest pain or palpitations. She did notice the slight headache/sinus fullness sensation but no other neurologic symptoms. Related Data Home Medications Medication Instructions Recorded Confirmed apixaban 5 mg tablet (Eliquis) 5 mg PO BID 08/06/22 08/26/23 Previous Rx's Medication Instructions Recorded levothyroxine 137 mcg tablet See Rx Instructions .Route 09/28/22 .COMPLEX #90 tabs atorvastatin 20 mg tablet See Rx Instructions .Route 12/07/22 .COMPLEX #90 tabs metoprolol succinate 50 mg 50 mg PO BID #60 tabs 03/16/23 tablet,extended release 24 hr melatonin 10 mg tablet 10 mg PO BEDTIME PRN sleep #90 tabs 07/06/23 cyclobenzaprine 5 mg tablet 5 mg PO BEDTIME PRN muscle spasm 08/26/23 #60 tabs prednisone 5 mg tablet 5 mg PO DAILY #90 tabs 08/26/23 losartan 50 mg tablet 50 mg PO DAILY #90 tabs 08/30/23 Allergies Allergy/AdvReac Type Severity Reaction Status Date / Time Iodinated Contrast Media Allergy Rapid Verified 08/26/23 11:25 [Iodinated Contrast- Oral Heart Rate and IV Dye] quinidine AdvReac Mild Verified 08/26/23 11:25 hydrocodone [From Vicodin] AdvReac itchy Verified 08/26/23 11:25 Review of Systems Review of Systems Narrative: Pertinent positive and negative findings as per HPI Patient History Medical History Microscopic colitis, unspecified Hypokalemia Atrial fibrillation Aortic stenosis Symptomatic PVCs Insomnia Hypothyroidism (acquired) Hyperlipidemia Hypertension Hearing loss Rheumatoid arthritis Osteoarthritis Musculoskeletal problem (~1999) Fibromyalgia (~1999) Mumps Measles Chicken pox (~194) Tinnitus (~1999) Fibroids (~1970) History of urinary incontinence (~2006) Surgical History Anesthesia History of lumpectomy History of hysterectomy (~1994) Status post removal of thyroid nodule (~1970) Family History Father Cancer Mother History of heart disease Brother Cancer Grandfather Cancer Grandmother No problems noted. Grandfather No problems noted. Social History Smoking Status: Never smoker alcohol intake: current substance use type: does not use Smoking Status: Never smoker Substance Use Type: does not use Exam Initial Vital Signs Initial Vital Signs: Vital Signs Temperature 97.5 F L 09/08/23 23:40 Pulse Rate 77 09/08/23 23:40 Respiratory Rate 19 09/08/23 23:40 Blood Pressure 185/79 H 09/08/23 23:40 Pulse Oximetry 97 09/08/23 23:40 Oxygen Delivery Method Room Air 09/08/23 23:40 General: Healthy appearing, in no acute distress. Able to give a complete and coherent history. Well-nourished well-developed HEENT: Moist mucous membranes, normal sclera with reactive pupils, Neck: No JVD, supple Respiratory: Lungs are clear to auscultation, no wheezing no rales no rhonchi. Full and symmetrical air movement Cardiac: Regular rate and rhythm no murmurs no bruits Abdomen: Soft, nontender, good bowel tones, no flank pain Skin: Warm and dry, no rashes Neurologic: Grossly neurologically intact with no obvious asymmetries or abnormalities Extremities: No trauma, well perfused Psych: Cooperative, appropriate insight and affect Course Orders Ordered: ED Orders 09/08/23 23:50 CMP [Comprehensive Metabolic Panel] Stat Complete Blood Count AUTO DIFF Stat Troponin I Stat Discontinued Medications Acetaminophen (Acetaminophen 325 Mg Tablet) 975 mg PO NOW ONE Stop: 09/08/23 23:58 Last Admin: 09/09/23 00:11 Dose: Not Given Documented By: KVNG Acetaminophen (Acetaminophen 325 Mg Tablet) 1,000 mg PO NOW ONE Stop: 09/09/23 00:02 Last Admin: 09/09/23 00:14 Dose: 1,000 mg Documented By: GEMMA Vital Signs Vital signs: Vital Signs - 8 hr 09/08/23 23:40 09/08/23 23:47 09/09/23 00:00 Temperature 97.5 F L Pulse Rate 77 72 Respiratory Rate 19 Blood Pressure 185/79 H 172/83 H Pulse Oximetry 97 99 Oxygen Delivery Method Room Air 09/09/23 00:00 09/09/23 00:30 09/09/23 00:30 Temperature Pulse Rate 73 70 Respiratory Rate Blood Pressure 183/72 H Pulse Oximetry 99 98 Oxygen Delivery Method Room Air Room Air Medical Decision Making Lab Data 09/08/23 23:50 09/08/23 23:50 Labs: Lab Results 09/08/23 Range/Units 23:50 WBC 7.7 (4.5-11.0) X10^3/uL RBC 3.62 L (4.0-5.2) X10^6/uL Hgb 11.3 L (12.0-16.0) g/dL Hct 32.5 L (36-46) % MCV 89.8 (80-100) fL MCH 31.1 (26-34) PG MCHC 34.6 (30-36) % RDW 13.6 (11.6-14.8) % Plt Count 237 (150-400) X10^3/uL Neut % (Auto) 73.0 (50-75) % Lymph % (Auto) 16.3 L (25-40) % [place] % (Auto) 8.0 (3-14) % Eos % (Auto) 2.2 (2-4) % Baso % (Auto) 0.5 (0-2) % Neut # (Auto) 5600 (7529-3821) /uL Lymph # (Auto) 1300 (4643-4415) /uL [place] # (Auto) 600 (0-900) /uL Eos # (Auto) 200 (0-450) /uL Baso # (Auto) 0 (0-100) /uL Sodium 140 (137-145) mmol/L Potassium 3.5 (3.4-5.1) mmol/L Chloride 111 H (98-107) mmol/L Carbon Dioxide 22 (22-32) mmol/L BUN 11 (7-17) mg/dL Creatinine 0.48 L (0.52-1.04) mg/dL Estimated GFR > 60 (>60) mL/min BUN/Creatinine Ratio 22.9 H (6-22) Glucose 120 H (80-110) mg/dL Calcium 7.5 L (8.4-10.2) mg/dL Total Bilirubin 0.4 (0.2-1.3) mg/dL AST 26 (14-36) IU/L ALT 21 (<35) IU/L Alkaline Phosphatase 64 (38-126) U/L Troponin I < 0.012 (0.01-0.034) ng/mL Total Protein 6.0 L (6.3-8.2) g/dL Albumin 3.4 L (3.5-5.0) g/dL Globulin 2.6 (1.7-4.1) g/dL Albumin/Globulin Ratio 1.3 (1.0-2.8) MDM Narrative Medical decision making narrative: CC: Blood pressure elevation with headache Complicating co-morbidities: Blood pressure medications increased in the last 24 hours, recent cardiac ablation Data collected from: patient, adult daughter Medical records reviewed: Primary care note from August 26 is reviewed Differential considered: Hypertensive crisis, elevated blood pressure without significant complication, acute coronary syndrome, volume overload, stroke, sinusitis, onset viral syndrome/upper respiratory symptoms Exam documented above, pertinent findings include: Entirely benign exam Lab Test results independently reviewed as above. Pertinent findings: CBC is unremarkable and does not suggest significant anemia or bacterial infection Chemistries are unremarkable with normal creatinine. Low calcium corrects with low albumin appreciated. Troponin is undetectable Treatments: Patient is given Tylenol for her headache Discussion: On re-evaluation with family present, patient notes that her headache still feels like there is a slight fullness behind her right cheek but no other complaints. Blood pressure is still slightly elevated but it is in the 158 over 80 range at this time. I do not think that she needs additional evaluation or workup at this time. There is no evidence of acute coronary syndrome, stroke, hypertensive crisis or alternate have explanation that would require further evaluation. I did encourage her to continue with the changed blood pressure doses. We also talked about taking blood pressure readings once 2-3 hours after taking her medications and not repeating them. She does have a home blood pressure cuff that keeps track of blood pressures on her phone and she does have appropriate cardiology follow-up coming in the next couple of weeks. She has family who is available to take her home and at this time I think she is safe for discharge Discharge Plan Departure Patient Disposition: Home Clinical Impression: Hypertension Qualifiers: Hypertension type: primary hypertension Qualified Code(s): I10 - Essential (primary) hypertension Headache Qualifiers: Headache type: unspecified Instructions: DI for High Blood Pressure Activity Restrictions/Additional Instructions: Thank you for coming in today Your workup today does not show any evidence of stroke, heart attack or life-threatening elevated blood pressure levels. Your kidney function is appropriate. I would recommend that you continue with the higher doses of both metoprolol and losartan as recommended by your picking tech. I would also recommend that you limit taking your blood pressure to approximately 2 hours after medications. If her picking tech suggested twice a day you can certainly do that. Typically after your morning medications is adequate. Repeating blood pressure readings in the absence of additional symptoms like numbness, tingling, difficulty speaking, chest pain or shortness a breath is not all that helpful. If you find that you are getting worse or develop any new symptoms, please feel free to return to the emergency department for further evaluation. Prescriptions: No Action levothyroxine 137 mcg tablet See Rx Instructions .ROUTE .COMPLEX Qty: 90 3RF Dose Instruction: TAKE 1 TABLET BY MOUTH DAILY Rx Instructions: TAKE 1 TABLET BY MOUTH DAILY atorvastatin 20 mg tablet See Rx Instructions .ROUTE .COMPLEX Qty: 90 3RF Dose Instruction: TAKE 1 TABLET BY MOUTH DAILY FOR HYPERCHOLESTEROLEMIA. Rx Instructions: TAKE 1 TABLET BY MOUTH DAILY FOR HYPERCHOLESTEROLEMIA. metoprolol succinate 50 mg tablet extended release 24 hr 50 mg PO BID Qty: 60 3RF melatonin 10 mg tablet 10 mg PO BEDTIME PRN (Reason: sleep) Qty: 90 3RF losartan 50 mg tablet 50 mg PO DAILY Qty: 90 0RF Eliquis 5 mg tablet 5 mg PO BID prednisone 5 mg tablet 5 mg PO DAILY Qty: 90 0RF cyclobenzaprine 5 mg tablet 5 mg PO BEDTIME PRN (Reason: muscle spasm) Qty: 60 1RF Referrals: Navin Ramsey MD [Primary Care Provider] - Stand Alone Forms: Patient Portal/API
[2023-09-08 23:47] VITALS: PULSE 72; O2SAT 99
[2023-09-09] VITALS: BP 172/83; PULSE 73; O2SAT 99
[2023-09-09] MEDS: ACETAMINOPHEN 325 MG TABLET 1000 MG PO (00:14)
[2023-09-09 00:16] LABS: Add Manual Diff / Slide Review NO; Basophils Absolute Auto 0 /uL (0-100); Basophils Percent Auto 0.5 % (0-2); Eosinophils Absolute Auto 200 /uL (0-450); Eosinophils Percent Auto 2.2 % (2-4); Hematocrit 32.5 % (36-46); Hemoglobin 11.3 g/dL (12.0-16.0); Lymphocytes Absolute Auto 1300 /uL (1100-4500); Lymphocytes Percent Auto 16.3 % (25-40); Mean Corpuscular HGB Conc 34.6 % (30-36); Mean Corpuscular Hemoglobin 31.1 PG (26-34); Mean Corpuscular Volume 89.8 fL (80-100); Monocytes Absolute Auto 600 /uL (0-900); Neutrophils Absolute Auto 5600 /uL (1500-7000); Platelet Count 237 X10^3/uL (150-400); Red Blood Cell Count 3.62 X10^6/uL (4.0-5.2); Red Cell Distribution Width 13.6 % (11.6-14.8); White Blood Cell Count 7.7 X10^3/uL (4.5-11.0)
[2023-09-09 00:25] LABS: Alanine Aminotransferase 21 IU/L (<35); Albumin 3.4 g/dL (3.5-5.0); Albumin Globulin Ratio 1.3 (1.0-2.8); Alkaline Phosphatase 64 U/L (38-126); Aspartate Aminotransferase 26 IU/L (14-36); BUN Creatinine Ratio 22.9 (6-22); Bilirubin Total 0.4 mg/dL (0.2-1.3); Blood Urea Nitrogen 11 mg/dL (7-17); Calcium 7.5 mg/dL (8.4-10.2); Carbon Dioxide 22 mmol/L (22-32); Chloride 111 mmol/L (98-107); Estimated Glomerular Filt Rate > 60 mL/min (>60); Globulin 2.6 g/dL (1.7-4.1); Glucose 120 mg/dL (80-110); HEMOLYSIS < 15 (0-50); Potassium 3.5 mmol/L (3.4-5.1); Sodium 140 mmol/L (137-145)
[2023-09-09 00:30] VITALS: BP 183/72; PULSE 70; O2SAT 98
[2023-09-09 00:37] LABS: Troponin I < 0.012 ng/mL (0.01-0.034)
[2023-09-09 00:48] VITALS: BP 169/69; PULSE 72; O2SAT 98
[2023-09-09 00:49] VITALS: BP 163/70; PULSE 72; O2SAT 98
== END 2023-09-09 01:27 | disposition home or self-care (01) ==
PROVIDERS: Emergency Provider Emergency Medicine; PCP Family Medicine
DX: I10 Essential (primary) hypertension (principal); R51.9 Headache, unspecified
CPT/HCPCS: 36415; 80053; 84484; 85025; 99283

== ENCOUNTER → 2024-02-22 18:31 | Outpatient (CLI) | payer MEDICARE, SELFPAY ==
--- NOTE | 2024-02-22 18:33 | DI.MRI.S_ITS ---
PROCEDURE: MR KNEE RT WO CON INDICATIONS: UNILATERAL PRIMARY OSTEOARTHRITIS RT KNEE TECHNIQUE: Noncontrast sagittal PD fast spin echo and T2 fast spin echo with fat saturation, sagittal 3-D FLASH with fat saturation; coronal T1 spin echo and PD fast spin echo with fat saturation, and axial PD fast spin echo with fat saturation through the knee. COMPARISON: [facility], CR, XR KNEE ARTHRITIC SERIES BI, 01/19/2024, 16:16. FINDINGS: Image quality: Excellent. Menisci: Peripheral displacement of medial meniscus bowing medial collateral ligament is seen. Diminutive appearance of medial meniscus is seen suggestive of prior partial meniscectomy versus chronic complex tear extending to both superior and inferior articulating surfaces, suggest clinical correlation. The lateral meniscus is intact. Low-grade partial-thickness tear involving posterior medial meniscal root ligament is seen. Cruciate ligaments: The anterior cruciate ligament is thickened with intrasubstance T2 hyperintense signal. The posterior cruciate ligament is intact. Medial structures: The medial collateral ligament appears intact. Visualized portions of the pes anserinus tendons appear normal. No abnormal bursal fluid. Lateral structures: The lateral collateral ligament, long and short heads of the biceps femoris tendon appear intact. Low-grade partial-thickness tear involving popliteus tendon is seen extending to musculotendinous junction. Iliotibial band appears normal. Anterior structures: Distal quadriceps tendinosis at its superior patellar insertion is noted. Diffuse patellar tendinosis is also seen. No full-thickness tendon rupture. Patellar alignment is normal. No femoral trochlear dysplasia or ventral trochlear prominence. No edema in the infrapatellar fat pad. Bones and cartilage: There is marrow edema involving weight-bearing portion of medial femoral condyle and adjacent medial tibial plateau without definite fracture line seen. Moderate to severe medial femoral tibial compartment osteoarthritis and high-grade chondromalacia. [id number] lateral femoral tibial compartment and patellofemoral compartment osteoarthritis and low-grade chondromalacia. No fracture or dislocation. Joint space: There is moderate knee joint fluid. There is a small popliteal cyst measures up to 2.8 x 2.5 x 5.3 cm in size. Normal appearing synovial plicae are incidentally noted. IMPRESSION: 1. Suggestion of chronic complex tear of medial meniscus versus prior partial medial meniscectomy suggest clinical correlation. Peripheral displacement of medial meniscal remanent bowing medial collateral ligament. The lateral meniscus is intact. 2. Degenerative changes and low-grade intrasubstance partial-thickness tear involving anterior cruciate ligament. No full-thickness ACL rupture. The PCL is intact. 3. Suggestion of low-grade partial-thickness tear involving popliteus tendon extending to musculotendinous junction. Distal quadriceps tendinosis. Diffuse patellar tendinosis. No tendon rupture. 4. Moderate to severe medial femoral tibial compartment osteoarthritis and high-grade chondromalacia. Mild to moderate osteoarthritis and low-grade chondromalacia in lateral femoral tibial compartment and patellofemoral compartment. No fracture or dislocation. 5. Moderate joint effusion and a small popliteal cyst. No definite loose bodies. Dictated by: Weston Eason M.D. on 02/23/2024 at 10:50 Approved by: Weston Eason M.D. on 02/23/2024 at 10:59
== END ==
PROVIDERS: PCP Family Medicine; Referring Provider Orthopaedic Surgery; Visit Provider Orthopaedic Surgery
DX: M17.11 Unilateral primary osteoarthritis, right knee (principal); S83.511A Sprain of anterior cruciate ligament of right knee, initial encounter; S83.8X1A Sprain of other specified parts of right knee, initial encounter
CPT/HCPCS: 73721

== ENCOUNTER → 2024-03-13 16:35 | Outpatient (CLI) | payer MEDICARE, SELFPAY ==
[2024-03-13 17:13] LABS: Add Manual Diff / Slide Review NO; Basophils Absolute Auto 0 /uL (0-100); Basophils Percent Auto 0.4 % (0-2); Eosinophils Absolute Auto 100 /uL (0-450); Hemoglobin 12.9 g/dL (12.0-16.0); Lymphocytes Absolute Auto 1200 /uL (1100-4500); Lymphocytes Percent Auto 15.3 % (25-40); Mean Corpuscular HGB Conc 33.9 % (30-36); Mean Corpuscular Volume 91.2 fL (80-100); Monocytes Absolute Auto 500 /uL (0-900); Monocytes Percent Auto 5.8 % (3-14); Neutrophils Absolute Auto 6200 /uL (1500-7000); Neutrophils Percent Auto 77.5 % (50-75); Platelet Count 309 X10^3/uL (150-400); Red Blood Cell Count 4.16 X10^6/uL (4.0-5.2); Red Cell Distribution Width 13.5 % (11.6-14.8)
[2024-03-13 17:33] LABS: Alanine Aminotransferase 25 IU/L (<35); Albumin 4.4 g/dL (3.5-5.0); Albumin Globulin Ratio 1.5 (1.0-2.8); Alkaline Phosphatase 78 U/L (38-126); Aspartate Aminotransferase 31 IU/L (14-36); Bilirubin Total 0.5 mg/dL (0.2-1.3); Blood Urea Nitrogen 12 mg/dL (7-17); Calcium 9.4 mg/dL (8.4-10.2); Carbon Dioxide 26 mmol/L (22-32); Chloride 104 mmol/L (98-107); Estimated Glomerular Filt Rate > 60 mL/min (>60); Glucose 131 mg/dL (80-110); HEMOLYSIS < 15 (0-50); Magnesium 2.2 mg/dL (1.6-2.3); Potassium 4.2 mmol/L (3.4-5.1); Sodium 138 mmol/L (137-145); Total Protein 7.4 g/dL (6.3-8.2)
[2024-03-13 17:45] LABS: HEMOLYSIS < 15 (0-50); Iron 74 ug/dL (37-170)
[2024-03-13 17:55] LABS: Percent Iron Saturation 23 % (15-50); Total Iron Binding Capacity 328 ug/dL (265-497); Transferrin 276 mg/dL (206-381)
[2024-03-13 18:09] LABS: Ferritin 31 ng/mL (11-264)
== END ==
LOC: LAB 16:36
PROVIDERS: PCP Family Medicine; Referring Provider Family Medicine; Visit Provider Family Medicine
DX: E87.6 Hypokalemia (principal); I48.91 Unspecified atrial fibrillation; E03.9 Hypothyroidism, unspecified; E78.5 Hyperlipidemia, unspecified; I10 Essential (primary) hypertension; M35.3 Polymyalgia rheumatica; R20.2 Paresthesia of skin
CPT/HCPCS: 36415; 80053; 82310; 82728; 83540; 83550; 83735; 83970; 85025

== ENCOUNTER → 2024-10-19 11:05 | Outpatient (CLI) | payer MEDICARE, SELFPAY ==
[2024-10-19 12:19] LABS: Add Manual Diff / Slide Review NO; Basophils Absolute Auto 0 /uL (0-100); Basophils Percent Auto 0.8 % (0-2); Eosinophils Absolute Auto 200 /uL (0-450); Eosinophils Percent Auto 3.7 % (2-4); Hematocrit 38.7 % (36-46); Hemoglobin 13.1 g/dL (12.0-16.0); Lymphocytes Absolute Auto 1700 /uL (1100-4500); Lymphocytes Percent Auto 30.1 % (25-40); Mean Corpuscular HGB Conc 33.8 % (30-36); Mean Corpuscular Hemoglobin 31.1 PG (26-34); Monocytes Absolute Auto 500 /uL (0-900); Monocytes Percent Auto 8.8 % (3-14); Neutrophils Absolute Auto 3100 /uL (1500-7000); Neutrophils Percent Auto 56.6 % (50-75); Platelet Count 261 X10^3/uL (150-400); Red Blood Cell Count 4.21 X10^6/uL (4.0-5.2); Red Cell Distribution Width 14.1 % (11.6-14.8); White Blood Cell Count 5.5 X10^3/uL (4.5-11.0)
[2024-10-19 12:32] LABS: Alanine Aminotransferase 27 IU/L (<35); Albumin 4.6 g/dL (3.5-5.0); Albumin Globulin Ratio 1.8 (1.0-2.8); Alkaline Phosphatase 70 U/L (38-126); Aspartate Aminotransferase 32 IU/L (14-36); BUN Creatinine Ratio 20.9 (6-22); Bilirubin Total 0.8 mg/dL (0.2-1.3); Blood Urea Nitrogen 14 mg/dL (7-17); Calcium 9.7 mg/dL (8.4-10.2); Carbon Dioxide 24 mmol/L (22-32); Chloride 105 mmol/L (98-107); Cholesterol 181 mg/dL (140-199); Estimated Glomerular Filt Rate > 60 mL/min (>60); Globulin 2.5 g/dL (1.7-4.1); Glucose 155 mg/dL (80-110); HDL Cholesterol 88 mg/dL (40-60); HEMOLYSIS < 15 (0-50); LDL Cholesterol Calculated 78 mg/dL (<100); Potassium 4.2 mmol/L (3.4-5.1); Sodium 138 mmol/L (137-145); Total Protein 7.1 g/dL (6.3-8.2); Triglycerides 74 mg/dL (35-150)
[2024-10-19 12:43] LABS: Hemoglobin A1C% w Est Avg Glu 5.9 % (4.0-6.0)
[2024-10-19 13:13] LABS: TSH w/ Reflex to FT4 0.96 uIU/mL (0.47-4.68)
[2024-10-20 03:40] LABS: Apolipoprotein B 63 mg/dL (<90)
== END ==
PROVIDERS: PCP Family Medicine; Referring Provider Family Medicine; Visit Provider Family Medicine
DX: E78.5 Hyperlipidemia, unspecified (principal); E03.9 Hypothyroidism, unspecified; I10 Essential (primary) hypertension; M35.3 Polymyalgia rheumatica
CPT/HCPCS: 36415; 80053; 80061; 82172; 83036; 84443; 85025

== ENCOUNTER → 2024-10-24 14:39 | Outpatient (CLI) | payer MEDICARE, SELFPAY ==
--- NOTE | 2024-10-24 14:40 | DI.RAD.S_ITS ---
PROCEDURE: XR HAND RT MIN 3V INDICATIONS: bilateral hand pain, swelling TECHNIQUE: 3 views of the hand(s) acquired. COMPARISON: None. FINDINGS: Bones: Nondisplaced oblique fracture seen in the 2nd middle phalanx. Diffuse osteoporosis noted. Joints: Severe STT and 1st CMC degenerative change noted. Severe erosive osteoarthritis present in the 2nd DIP, the 3rd DIP and the 5th PIP joints. There is fusion across the 4th and 5th DIP joints. Moderate erosive arthritis noted in the 1st 2nd 3rd and 4th PIP. There is moderate degenerative change in the 2nd 4th and 5th MCP joints Soft tissues: No soft tissue abnormality. IMPRESSION: Atypical appearing nondisplaced oblique fracture 2nd middle phalanx. Multilevel degeneration and erosive osteoarthritis. Dictated by: Abhijit Kim M.D. on 10/25/2024 at 6:43 Approved by: Abhijit Kim M.D. on 10/25/2024 at 6:45
--- NOTE | 2024-10-24 14:40 | DI.RAD.S_ITS ---
PROCEDURE: XR HAND LT MIN 3V INDICATIONS: bilateral hand pain, swelling TECHNIQUE: 3 views of the hand(s) acquired. COMPARISON: None. FINDINGS: Bones: Moderate diffuse osteoporosis noted. No focal osseous lesion. Joints: Severe STT and 1st CMC degenerative change noted. Severe erosive osteoarthritis noted in the 2nd through 5th DIP joints with moderate changes in the 2nd through 5th PIP joints. Moderate arthritic changes in the MCP joints with associated synovial swelling suggest the possibility inflammatory arthropathy. Soft tissues: No soft tissue abnormality. IMPRESSION: Multilevel degeneration and erosive osteoarthritis. MCP synovial swelling is likely within normal limits. The possibility of inflammatory arthritis such as rheumatoid arthritis should be evaluated with arthritic serologies, however Dictated by: Abhijit Kim M.D. on 10/25/2024 at 6:38 Approved by: Abhijit Kim M.D. on 10/25/2024 at 6:41
[2024-10-24 16:26] LABS: C-Reactive Protein Quant < 0.5 mg/dL (<1.0)
[2024-10-24 16:29] LABS: Rheumatoid Factor 11.5 IU/mL (<12.0)
[2024-10-24 16:37] LABS: Erythrocyte Sedimentation Rate 8 MM/HR (0-20)
[2024-10-27 12:38] LABS: CCP Antibodies IgG/IgA 5 units (0-19)
== END ==
PROVIDERS: PCP Family Medicine; Referring Provider Family Medicine; Visit Provider Family Medicine
DX: S62.650A Nondisplaced fracture of middle phalanx of right index finger, initial encounter for closed fracture (principal); M15.4 Erosive (osteo)arthritis; M19.041 Primary osteoarthritis, right hand; M19.042 Primary osteoarthritis, left hand; M81.0 Age-related osteoporosis without current pathological fracture; M79.89 Other specified soft tissue disorders; M21.941 Unspecified acquired deformity of hand, right hand; M21.942 Unspecified acquired deformity of hand, left hand
CPT/HCPCS: 36415; 73130; 85651; 86140; 86200; 86430

== ENCOUNTER 2024-11-19 00:33 | Emergency (ER) | payer MEDICARE, SELFPAY ==
[2024-11-19] VITALS (9 sets, daily range): BP systolic 163–185; BP diastolic 70–87; PULSE 72–79; RESP 13–16; TEMP 36.9; O2SAT 95–97; BMI 26.4
--- NOTE | 2024-11-19 00:57 | DI.RAD.S_ITS ---
PROCEDURE: XR CHEST 1V INDICATIONS: chest pain TECHNIQUE: One view of the chest was acquired. COMPARISON: Outside Facility, RG, XR CXR 2V, 11/27/2018, 14:15. (Additional prior imaging is not available for review from the archive at the time of this dictation.) FINDINGS: Surgical changes and devices: None. Lungs and pleura: Right midlung nodular opacities are seen, which are similar to 2018. No pleural effusions or pneumothorax. Mediastinum: Mediastinal contours appear normal. Heart size is normal. Atherosclerotic calcification of the aortic arch is noted. Bones and chest wall: No suspicious bony lesions. Age-appropriate bony degenerative changes are seen. Overlying soft tissues appear unremarkable. IMPRESSION: No acute cardiopulmonary process is seen. Stable right midlung nodular opacities are seen, likely benign, given the stability over time. Dictated by: Jack Bhatt M.D. on 11/19/2024 at 0:20 Approved by: Jack Bhatt M.D. on 11/19/2024 at 0:21
--- NOTE | 2024-11-19 00:58 | EKG_ITS ---
[facility] [id number] [place] [id number] Test Date: 2024-11-19 Pat Name: Gayathri Ho Department: Room: Gender: Female Drawer In Hand: BLOSSOM : 1940 Requested By: Order Number: [id number] Reading MD: Jeramie Kline Measurements Intervals [place] Rate: 67 P: 55 WA: 154 QRS: -6 QRSD: 84 T: 208 QT: 428 QTc: 452 Interpretive Statements Sinus rhythm with fusion complexes and premature atrial complexes with aberrant conduction Left ventricular hypertrophy with repolarization abnormality ( R in aVL ) Anteroseptal infarct , age undetermined Electronically Signed On 11-22-2024 17:36:08 PDT by Jeramie Kline
[2024-11-19 01:17] LABS: Add Manual Diff / Slide Review NO; Basophils Absolute Auto 0 /uL (0-100); Basophils Percent Auto 0.5 % (0-2); Eosinophils Absolute Auto 200 /uL (0-450); Eosinophils Percent Auto 1.9 % (2-4); Hematocrit 36.2 % (36-46); Hemoglobin 12.6 g/dL (12.0-16.0); Lymphocytes Absolute Auto 1400 /uL (1100-4500); Lymphocytes Percent Auto 16.2 % (25-40); Mean Corpuscular HGB Conc 34.8 % (30-36); Mean Corpuscular Hemoglobin 31.5 PG (26-34); Mean Corpuscular Volume 90.4 fL (80-100); Monocytes Absolute Auto 700 /uL (0-900); Neutrophils Absolute Auto 6300 /uL (1500-7000); Neutrophils Percent Auto 73.4 % (50-75); Platelet Count 255 X10^3/uL (150-400); Red Cell Distribution Width 13.3 % (11.6-14.8); White Blood Cell Count 8.6 X10^3/uL (4.5-11.0)
[2024-11-19 01:21] LABS: INR 1.1 (0.9-1.3); Prothrombin Time 12.3 SECONDS (9.4-12.5)
[2024-11-19 01:24] LABS: PTT Partial Thromboplastin Tim 37 SECONDS (25.1-36.5)
[2024-11-19 01:25] LABS: Alanine Aminotransferase 29 IU/L (<35); Albumin 4.4 g/dL (3.5-5.0); Albumin Globulin Ratio 1.7 (1.0-2.8); Alkaline Phosphatase 74 U/L (38-126); Aspartate Aminotransferase 34 IU/L (14-36); BUN Creatinine Ratio 23.5 (6-22); Bilirubin Total 0.5 mg/dL (0.2-1.3); Blood Urea Nitrogen 16 mg/dL (7-17); Calcium 9.2 mg/dL (8.4-10.2); Carbon Dioxide 24 mmol/L (22-32); Chloride 104 mmol/L (98-107); Creatine Kinase 61 U/L (30-135); Estimated Glomerular Filt Rate > 60 mL/min (>60); Globulin 2.6 g/dL (1.7-4.1); Glucose 158 mg/dL (70-99); HEMOLYSIS < 15 (0-50); Lipase 48 U/L (23-300); Magnesium 1.9 mg/dL (1.6-2.3); Potassium 3.8 mmol/L (3.4-5.1); Sodium 138 mmol/L (137-145)
[2024-11-19 01:37] LABS: NT-proBNP (BNP-Adult 18+) 1050 pg/mL (<450); Troponin I < 0.012 ng/mL (0.01-0.034)
--- NOTE | 2024-11-19 02:09 | ED.ARRPALP ---
HPI - Arrhythmia/Palpitations General Chief Complaint: Arrhythmia/Palpitations Stated Complaint: Elevated BP Time Seen by Provider: 11/19/24 02:09 Source: patient Mode of arrival: Ambulatory History of Present Illness HPI narrative: 84yo with sensation of fast heart race, irregular heart rate, no known history of heart rhythm problems documented, resolved without specific treatment. Some shorteness of breath sensation. Denies current recent chest pain. No syncope or presyncope symptoms. No associaged diaphoresis, nausea or vomiting. No focal weakness or numbness. Feels better now without specific treaments or maneuvers. Related Data Home Medications Medication Instructions Recorded Confirmed apixaban 5 mg tablet (Eliquis) 5 mg PO BID 08/06/22 10/24/24 metoprolol succinate 25 mg 25 mg PO BID 09/16/23 10/24/24 tablet,extended release 24 hr Previous Rx's Medication Instructions Recorded Disabled Parking Permit #1 ea 09/12/24 atorvastatin 20 mg tablet See Rx Instructions .Route 09/12/24 .COMPLEX #90 tabs levothyroxine 137 mcg tablet See Rx Instructions .Route 09/12/24 .COMPLEX #90 tabs Allergies Allergy/AdvReac Type Severity Reaction Status Date / Time Iodinated Contrast Media Allergy Rapid Verified 10/24/24 13:54 [Iodinated Contrast- Oral Heart Rate and IV Dye] quinidine AdvReac Mild Verified 10/24/24 13:54 hydrocodone [From Vicodin] AdvReac itchy Verified 10/24/24 13:54 Patient History Medical History (Updated 11/19/24 @ 03:46 by Livan Conley MD) Cardiomyopathy Lichen planus Microscopic colitis, unspecified Hypokalemia Atrial fibrillation Aortic stenosis Symptomatic PVCs Insomnia Hypothyroidism (acquired) Hyperlipidemia Hypertension Hearing loss Rheumatoid arthritis Osteoarthritis Musculoskeletal problem (~1999) Fibromyalgia (~1999) Mumps Measles Chicken pox (~194) Tinnitus (~1999) Fibroids (~1970) History of urinary incontinence (~2006) Surgical History Anesthesia History of lumpectomy History of hysterectomy (~1994) Status post removal of thyroid nodule (~1970) Family History Father Cancer Mother History of heart disease Brother Cancer Grandfather Cancer Grandmother No problems noted. Grandfather No problems noted. Social History Smoking Status: Never smoker alcohol intake: current substance use type: does not use Smoking Status: Never smoker Exam Narrative Exam Narrative: GENERAL: Well-developed patient, in mild distress. HEAD: Atraumatic. Normocephalic. EYES: Pupils equal round and reactive. Extraocular motions intact. No scleral icterus. No injection or drainage. ENT: Nose without bleeding, purulent drainage. Throat without erythema, tonsillar hypertrophy or exudate. Airway patent. NECK: Trachea midline. Non tender CARDIOVASCULAR: Regular rate and rhythm without murmurs, gallops, or rubs. RESPIRATORY: Clear to auscultation. Breath sounds equal bilaterally. No wheezes, rales, or rhonchi. GASTROINTESTINAL: Abdomen soft, non-tender, nondistended. EXTREMITIES: No edema or joint tenderness. BACK: Nontender without deformity or crepitance. No flank tenderness. NEURO: AOx3. Motor functions grossly nonfocal SKIN: No rash or erythema of visible areas Initial Vital Signs Initial Vital Signs: Vital Signs Temperature 98.4 F 11/19/24 00:50 Pulse Rate 79 11/19/24 00:50 Respiratory Rate 16 11/19/24 00:50 Blood Pressure 185/87 H 11/19/24 00:50 Pulse Oximetry 97 11/19/24 00:50 Oxygen Delivery Method Room Air 11/19/24 00:50 Course Orders Ordered: ED Orders 11/19/24 00:55 EKG-12 Lead Stat 11/19/24 00:57 XR chest 1V Stat 11/19/24 01:06 Complete Blood Count AUTO DIFF Stat Comprehensive Metabolic Panel Stat Lipase Stat Magnesium Stat NT-proBNP (BNP-Adult 18+) Stat PTT Partial Thromboplastin Andrew Stat Prothrombin Time INR Stat Troponin & CK Cardiac Panel Stat Vital Signs Vital signs: Vital Signs - 8 hr 11/19/24 00:50 11/19/24 01:13 Temperature 98.4 F Pulse Rate 79 Respiratory Rate 16 Blood Pressure 185/87 H 166/74 H Pulse Oximetry 97 Oxygen Delivery Method Room Air MDM - Arrhythmia/Palpitations Lab Data 11/19/24 01:06 11/19/24 01:06 Labs: Lab Results 11/19/24 11/19/24 Range/Units 01:06 03:05 WBC 8.6 (4.5-11.0) X10^3/uL RBC 4.00 (4.0-5.2) X10^6/uL Hgb 12.6 (12.0-16.0) g/dL Hct 36.2 (36-46) % MCV 90.4 (80-100) fL MCH 31.5 (26-34) PG MCHC 34.8 (30-36) % RDW 13.3 (11.6-14.8) % Plt Count 255 (150-400) X10^3/uL Neut % (Auto) 73.4 (50-75) % Lymph % (Auto) 16.2 L (25-40) % [place] % (Auto) 8.0 (3-14) % Eos % (Auto) 1.9 L (2-4) % Baso % (Auto) 0.5 (0-2) % Neut # (Auto) 6300 (7735-3043) /uL Lymph # (Auto) 1400 (3400-4235) /uL [place] # (Auto) 700 (0-900) /uL Eos # (Auto) 200 (0-450) /uL Baso # (Auto) 0 (0-100) /uL PT 12.3 (9.4-12.5) SECONDS INR 1.1 (0.9-1.3) APTT 37 H (25.1-36.5) SECONDS Sodium 138 (137-145) mmol/L Potassium 3.8 (3.4-5.1) mmol/L Chloride 104 (98-107) mmol/L Carbon Dioxide 24 (22-32) mmol/L BUN 16 (7-17) mg/dL Creatinine 0.68 (0.52-1.04) mg/dL Estimated GFR > 60 (>60) mL/min BUN/Creatinine Ratio 23.5 H (6-22) Glucose 158 H (70-99) mg/dL Calcium 9.2 (8.4-10.2) mg/dL Magnesium 1.9 (1.6-2.3) mg/dL Total Bilirubin 0.5 (0.2-1.3) mg/dL AST 34 (14-36) IU/L ALT 29 (<35) IU/L Alkaline Phosphatase 74 (38-126) U/L Total Creatine Kinase 61 (30-135) U/L Troponin I < 0.012 < 0.012 (0.01-0.034) ng/mL NT-Pro-B Natriuret Pep 1050 H (<450) pg/mL Total Protein 7.0 (6.3-8.2) g/dL Albumin 4.4 (3.5-5.0) g/dL Globulin 2.6 (1.7-4.1) g/dL Albumin/Globulin Ratio 1.7 (1.0-2.8) Lipase 48 (23-300) U/L ECG Data Attestation: I personally reviewed and interpreted this ECG as follows: Interpretation: Normal sinus rhythm with rate of 68, no obvious ST segment elevation or depression changes. Early Re pole changes noted. MT 154, QRS 84, QTC 452. [facility] Narrative Medical decision making narrative: 84-year-old female with palpitation like symptoms. No syncope or presyncope. Afebrile, sirs screen negative. Denying shortness of breath, takes blood thinner medications. Screening EKG unremarkable. No ectopy on monitor obvious. Lungs clear, regular rate and rhythm, no obvious murmur. Initial troponin negative. Await interval repeat troponin. Electrolytes unremarkable. Repeat troponin also negative. Unclear cause of her sensation of palpitations, might be having intermittent PACs and PVCs. Consider outpatient ambulatory monitoring. No obvious emergency medical condition identified for now. They would like to go home. Further evaluation for now as an outpatient. Discharged home with family. Return precautions discussed. Discharge Plan Departure Patient Disposition: Home Clinical Impression: Heart palpitations Activity Restrictions/Additional Instructions: Heart palpitation symptoms. EKG showed sinus rhythm while in the emergency department. Consider Holter cardiac monitoring as an outpatient for now. Serial blood tests not suggestive of heart attack at this time. History of aortic stenosis noted, recent echocardiogram, awaiting follow up Cardiology Clinic visit. Follow up with Cardiology as planned. Consider outpatient Holter/ZIO patch or other cardiac monitoring as an outpatient for now. Return earlier to this/nearest emergency department for any change worsening symptoms or any concerns prior. Prescriptions: No Action Eliquis 5 mg tablet 5 mg PO BID metoprolol succinate 25 mg tablet extended release 24 hr 25 mg PO BID levothyroxine 137 mcg tablet See Rx Instructions .ROUTE .COMPLEX Qty: 90 3RF Dose Instruction: TAKE 1 TABLET BY MOUTH DAILY Rx Instructions: TAKE 1 TABLET BY MOUTH DAILY atorvastatin 20 mg tablet See Rx Instructions .ROUTE .COMPLEX Qty: 90 3RF Dose Instruction: TAKE 1 TABLET BY MOUTH DAILY FOR HYPERCHOLESTEROLEMIA. Rx Instructions: TAKE 1 TABLET BY MOUTH DAILY FOR HYPERCHOLESTEROLEMIA. (DME) Disabled Parking Permit See Rx Instructions .ROUTE .MEDSUPPLY Qty: 1 0RF Rx Instructions: I find this patient to be medically disabled and qualified for Disabled Parking as indicated and signed on the accompanying Disabled Parking Application for Individuals. Referrals: Navin Ramsey MD [Primary Care Provider] - Stand Alone Forms: Patient Portal/API/Survey
[2024-11-19 04:33] LABS: Troponin I < 0.012 ng/mL (0.01-0.034)
== END 2024-11-19 05:15 | disposition home or self-care (01) ==
PROVIDERS: Emergency Provider Emergency Medicine; PCP Family Medicine
DX: R00.2 Palpitations (principal); Z79.01 Long term (current) use of anticoagulants
CPT/HCPCS: 36415; 71045; 80053; 82550; 83690; 83735; 83880; 84484; 85025; 85610; 85730; 93005; 99283; 99284

== ENCOUNTER 2024-11-23 08:23 | Emergency (ER) | payer MEDICARE, SELFPAY ==
[2024-11-23] VITALS (16 sets, daily range): BP systolic 145–200; BP diastolic 70–100; PULSE 57–67; RESP 13–20; TEMP 36.6; O2SAT 95–98; BMI 27.3
--- NOTE | 2024-11-23 08:32 | EKG_ITS ---
[place] [id number] [place] [id number] Test Date: 2024-11-23 Pat Name: Gayathri Ho Department: Room: Gender: Female [employer] Repairer: RUBEN : 1940 Requested By: Order Number: [id number] Reading MD: Gene Escalona Measurements Intervals [place] Rate: 68 P: -5 [place]: 176 QRS: -25 QRSD: 134 T: 121 QT: 470 QTc: 499 Interpretive Statements Normal sinus rhythm Left bundle branch block Electronically Signed On 11-23-2024 17:06:05 PDT by Gene Escalona
--- NOTE | 2024-11-23 08:40 | DI.RAD.S_ITS ---
PROCEDURE: XR CHEST 1V INDICATIONS: chest pain TECHNIQUE: One view of the chest was acquired. COMPARISON: Outside Facility, RG, XR CXR 2V, 11/27/2018, 14:15. [facility], CR, XR CHEST 1V, 11/19/2024, 0:56. FINDINGS: Surgical changes and devices: None. Lungs and pleura: Lungs are unchanged, and a 1.9 cm diameter previously present rounded nodular radiodensity is again seen at the right mid lung, present without change from 11/27/18 similar chest plain film. No pleural effusions or pneumothorax. Mediastinum: Mediastinal contours appear normal. Heart size is normal. Bones and chest wall: No suspicious bony lesions. Overlying soft tissues appear unremarkable. IMPRESSION: Source of new onset chest pain is not seen. Stable appearance of a longstanding rounded radiodensity at the right mid lung, also seen in November of 2018. Dictated by: Chuckie Bhardwaj M.D. on 11/23/2024 at 9:12 Approved by: Chuckie Bhardwaj M.D. on 11/23/2024 at 9:16
[2024-11-23 08:49] LABS: Prothrombin Time 11.7 SECONDS (9.4-12.5)
[2024-11-23 08:52] LABS: Add Manual Diff / Slide Review NO; Basophils Absolute Auto 0 /uL (0-100); Basophils Percent Auto 0.6 % (0-2); Eosinophils Absolute Auto 200 /uL (0-450); Eosinophils Percent Auto 3.6 % (2-4); Hematocrit 37.4 % (36-46); Lymphocytes Absolute Auto 1400 /uL (1100-4500); Lymphocytes Percent Auto 27.2 % (25-40); Mean Corpuscular HGB Conc 34.7 % (30-36); Mean Corpuscular Hemoglobin 31.4 PG (26-34); Mean Corpuscular Volume 90.3 fL (80-100); Monocytes Absolute Auto 400 /uL (0-900); Monocytes Percent Auto 7.6 % (3-14); Neutrophils Absolute Auto 3200 /uL (1500-7000); PTT Partial Thromboplastin Tim 20 SECONDS (25.1-36.5); Platelet Count 146 X10^3/uL (150-400); Red Blood Cell Count 4.14 X10^6/uL (4.0-5.2); Red Cell Distribution Width 13.6 % (11.6-14.8); White Blood Cell Count 5.2 X10^3/uL (4.5-11.0)
[2024-11-23 09:20] LABS: Alanine Aminotransferase 29 IU/L (<35); Albumin 4.5 g/dL (3.5-5.0); Albumin Globulin Ratio 1.7 (1.0-2.8); Alkaline Phosphatase 55 U/L (38-126); Aspartate Aminotransferase 45 IU/L (14-36); Bilirubin Total 0.9 mg/dL (0.2-1.3); Blood Urea Nitrogen 13 mg/dL (7-17); Calcium 9.2 mg/dL (8.4-10.2); Carbon Dioxide 25 mmol/L (22-32); Chloride 108 mmol/L (98-107); Creatine Kinase 47 U/L (30-135); Estimated Glomerular Filt Rate > 60 mL/min (>60); Globulin 2.7 g/dL (1.7-4.1); Glucose 157 mg/dL (70-99); Lipase 27 U/L (23-300); Potassium 4.4 mmol/L (3.4-5.1); Sodium 139 mmol/L (137-145); Total Protein 7.2 g/dL (6.3-8.2)
[2024-11-23 09:24] LABS: HEMOLYSIS 84 (0-50)
[2024-11-23 09:31] LABS: NT-proBNP (BNP-Adult 18+) 1440 pg/mL (<450); Troponin I < 0.012 ng/mL (0.01-0.034)
--- NOTE | 2024-11-23 12:51 | PC.NURSE ---
Pt a&ox4. Sx resolved. Daughter at bedside. Denies cp, sob, nausea at this time. Dr notified.
[2024-11-23 13:24] LABS: D Dimer 538 ng/ml (<500)
[2024-11-23] MEDS: ATORVASTATIN 20 MG TABLET PO (13:51)
[2024-11-23] MEDS: APIXABAN 5 MG TABLET PO (13:51)
[2024-11-23] MEDS: METOPROLOL ER 25 MG TABLET PO (13:51)
--- NOTE | 2024-11-23 20:33 | ED_ITS ---
HPI - Arrhythmia/Palpitations General Chief Complaint: Arrhythmia/Palpitations Stated Complaint: palps, sob Time Seen by Provider: 11/23/24 08:29 History of Present Illness HPI narrative: This 84-year-old female presents to the emergency department with a history of palpitations and shortness of breath. She denies any sweetie chest pain. She has a history of atrial fibrillation is on apixaban. She also has a history of aortic stenosis and is due from work consultation on this problem in the next week. To her knowledge she has no history of PE. Related Data Home Medications Medication Instructions Recorded Confirmed apixaban 5 mg tablet (Eliquis) 5 mg PO BID 08/06/22 10/24/24 metoprolol succinate 25 mg 25 mg PO BID 09/16/23 10/24/24 tablet,extended release 24 hr Previous Rx's Medication Instructions Recorded Disabled Parking Permit #1 ea 09/12/24 atorvastatin 20 mg tablet See Rx Instructions .Route 09/12/24 .COMPLEX #90 tabs levothyroxine 137 mcg tablet See Rx Instructions .Route 09/12/24 .COMPLEX #90 tabs Allergies Allergy/AdvReac Type Severity Reaction Status Date / Time Iodinated Contrast Media Allergy Rapid Verified 10/24/24 13:54 [Iodinated Contrast- Oral Heart Rate and IV Dye] quinidine AdvReac Mild Verified 10/24/24 13:54 hydrocodone [From Vicodin] AdvReac itchy Verified 10/24/24 13:54 Review of Systems Review of Systems Narrative: All other systems are negative on review of systems accept cardiovascular patient has since his palpitations has no sweetie chest pain either substernal or otherwise. Respiratory patient is short of breath but has no cough no audible wheezing. Patient History Medical History (Updated 11/23/24 @ 13:37 by Patrica Orr MD) Cardiomyopathy Lichen planus Microscopic colitis, unspecified Hypokalemia Atrial fibrillation Aortic stenosis Symptomatic PVCs Insomnia Hypothyroidism (acquired) Hyperlipidemia Hypertension Hearing loss Rheumatoid arthritis Osteoarthritis Musculoskeletal problem (~1999) Fibromyalgia (~1999) Mumps Measles Chicken pox (~194) Tinnitus (~1999) Fibroids (~1970) History of urinary incontinence (~2006) Surgical History Anesthesia History of lumpectomy History of hysterectomy (~1994) Status post removal of thyroid nodule (~1970) Family History Father Cancer Mother History of heart disease Brother Cancer Grandfather Cancer Grandmother No problems noted. Grandfather No problems noted. Social History alcohol intake: current substance use type: does not use Exam Initial Vital Signs Initial Vital Signs: Vital Signs Pulse Rate 66 11/23/24 08:28 Respiratory Rate 20 11/23/24 08:28 Blood Pressure 200/84 H 11/23/24 08:28 Pulse Oximetry 97 11/23/24 08:28 Const Other: Malaise secondary to palpitations and short of breath HENMT HENMT Other: Negative Eyes Other: Negative Neck Other: Supple no stridor Resp Other: Clear breath sounds Cardio Rate: regular rate Rhythm: regular rhythm GI Other: Nontender, adequate bowel sounds, no flank tenderness Neuro Other: Oriented x3, cranial nerves 2-7 intact strength, sensation intact Extrem Other: Nontender, normal range of motion, no edema Course Course Course Narrative: This 84-year-old female presents to the emergency room with the complaint of palpitations and shortness of breath. Lab workup was nearly completely negative and this included troponin, WBC and Chem profile. Chest x-ray reveals no acute infiltrate. There is a round radiodensity in the right mid lung which has been present on a film in 2019. It was finally concluded that the patient has aortic stenosis may be contributing to her current symptoms and she did not want to pursue a CT chest PE protocol to rule out a PE because she plans to follow up with the veterinary poultry inspector about her aortic stenosis in the next week. She wanted to be discharged at this point that she had had a long wait the ER. She should return to the ER if she has worsening shortness of breath. Orders Ordered: ED Orders 11/23/24 13:18 D Dimer Stat Discontinued Medications Apixaban (Apixaban 5 Mg Tablet) 5 mg PO NOW ONE Stop: 11/23/24 13:23 Last Admin: 11/23/24 13:51 Dose: 5 mg Documented By: CTS Atorvastatin Calcium (Atorvastatin 20 Mg Tablet) 20 mg PO NOW ONE Stop: 11/23/24 13:23 Last Admin: 11/23/24 13:51 Dose: 20 mg Documented By: DENEEN Levothyroxine Sodium (Levothyroxine 137 Mcg Tablet) 137 mcg PO DAILY@0600 [facility] Metoprolol Succinate (Metoprolol Er 25 Mg Tablet) 25 mg PO NOW ONE Stop: 11/23/24 13:23 Last Admin: 11/23/24 13:51 Dose: 25 mg Documented By: DENEEN Vital Signs Vital signs: Vital Signs - 8 hr 11/23/24 13:00 11/23/24 13:00 11/23/24 13:30 Pulse Rate 60 Respiratory Rate 13 Blood Pressure 160/72 H 171/74 H Pulse Oximetry 95 11/23/24 13:30 Pulse Rate 62 Respiratory Rate 19 Blood Pressure Pulse Oximetry 97 MDM - Arrhythmia/Palpitations Medical Records Attestation: I reviewed the patient's medical records. Medical records narrative: Differential includes PE versus valvular heart disease versus pneumonia versus dissection versus acute asthma. It was concluded after getting the results of the patient's workup that most likely she was having shortness of breath attributable to her aortic stenosis disease and she plans to follow up with a veterinary poultry inspector in the near future about this. Lab Data 11/23/24 08:35 11/23/24 08:35 Labs: Lab Results 11/23/24 11/23/24 Range/Units 08:35 13:18 WBC 5.2 (4.5-11.0) X10^3/uL RBC 4.14 (4.0-5.2) X10^6/uL Hgb 13.0 (12.0-16.0) g/dL Hct 37.4 (36-46) % MCV 90.3 (80-100) fL MCH 31.4 (26-34) PG MCHC 34.7 (30-36) % RDW 13.6 (11.6-14.8) % Plt Count 146 L (150-400) X10^3/uL Neut % (Auto) 61.0 (50-75) % Lymph % (Auto) 27.2 (25-40) % [place] % (Auto) 7.6 (3-14) % Eos % (Auto) 3.6 (2-4) % Baso % (Auto) 0.6 (0-2) % Neut # (Auto) 3200 (5595-1636) /uL Lymph # (Auto) 1400 (0794-7955) /uL [place] # (Auto) 400 (0-900) /uL Eos # (Auto) 200 (0-450) /uL Baso # (Auto) 0 (0-100) /uL PT 11.7 (9.4-12.5) SECONDS INR 1.0 (0.9-1.3) APTT 20 L (25.1-36.5) SECONDS D-Dimer 538 H (<500) ng/ml Sodium 139 (137-145) mmol/L Potassium 4.4 (3.4-5.1) mmol/L Chloride 108 H (98-107) mmol/L Carbon Dioxide 25 (22-32) mmol/L BUN 13 (7-17) mg/dL Creatinine 0.59 (0.52-1.04) mg/dL Estimated GFR > 60 (>60) mL/min BUN/Creatinine Ratio 22.0 (6-22) Glucose 157 H (70-99) mg/dL Calcium 9.2 (8.4-10.2) mg/dL Magnesium 2.0 (1.6-2.3) mg/dL Total Bilirubin 0.9 (0.2-1.3) mg/dL AST 45 H (14-36) IU/L ALT 29 (<35) IU/L Alkaline Phosphatase 55 (38-126) U/L Total Creatine Kinase 47 (30-135) U/L Troponin I < 0.012 (0.01-0.034) ng/mL NT-Pro-B Natriuret Pep 1440 H (<450) pg/mL Total Protein 7.2 (6.3-8.2) g/dL Albumin 4.5 (3.5-5.0) g/dL Globulin 2.7 (1.7-4.1) g/dL Albumin/Globulin Ratio 1.7 (1.0-2.8) Lipase 27 (23-300) U/L Discharge Plan Departure Patient Disposition: Home Clinical Impression: Acute dyspnea, History of aortic stenosis Clinical Impression: (Ruled Out): Hypertension Activity Restrictions/Additional Instructions: All of the lab work done does not point to an acute heart event or an infection. Chest x-ray was negative for pneumonia or congestive heart failure. Was considering ruling out a PE or clot in the chest but learned that you have aortic stenosis and agree with the follow-up we were doing and Jack on Wednesday Prescriptions: No Action Eliquis 5 mg tablet 5 mg PO BID metoprolol succinate 25 mg tablet extended release 24 hr 25 mg PO BID levothyroxine 137 mcg tablet See Rx Instructions .ROUTE .COMPLEX Qty: 90 3RF Dose Instruction: TAKE 1 TABLET BY MOUTH DAILY Rx Instructions: TAKE 1 TABLET BY MOUTH DAILY atorvastatin 20 mg tablet See Rx Instructions .ROUTE .COMPLEX Qty: 90 3RF Dose Instruction: TAKE 1 TABLET BY MOUTH DAILY FOR HYPERCHOLESTEROLEMIA. Rx Instructions: TAKE 1 TABLET BY MOUTH DAILY FOR HYPERCHOLESTEROLEMIA. (DME) Disabled Parking Permit See Rx Instructions .ROUTE .MEDSUPPLY Qty: 1 0RF Rx Instructions: I find this patient to be medically disabled and qualified for Disabled Parking as indicated and signed on the accompanying Disabled Parking Application for Individuals. Referrals: Navin Ramsey MD [Primary Care Provider] - Stand Alone Forms: Patient Portal/API/Survey
== END 2024-11-23 13:58 | disposition home or self-care (01) ==
PROVIDERS: Emergency Provider Emergency Medicine; PCP Family Medicine
DX: R06.00 Dyspnea, unspecified (principal); Z86.79 Personal history of other diseases of the circulatory system
CPT/HCPCS: 36415; 71045; 80053; 82550; 83690; 83735; 83880; 84484; 85025; 85379; 85610; 85730; 93005; 99284

== ENCOUNTER → 2025-02-02 10:58 | Outpatient (CLI) | payer MEDICARE, SELFPAY ==
--- NOTE | 2025-02-02 11:46 | DI.RAD.S_ITS ---
PROCEDURE: XR CHEST 2V INDICATIONS: fatigue, lung crackles TECHNIQUE: 2 views of the chest were acquired. COMPARISON: [facility], CR, XR CHEST 1V, 11/23/2024, 8:36. 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 New or increased [id number] bilateral diffuse peribronchial thickening, some of which may be related expiratory result; however, bronchitis, viral infection, asthma or other process should be considered. Approximately 1.8 centimeter right pulmonary nodule just lateral to the right hilum unchanged. Moderate calcifications of the aortic arch unchanged. IMPRESSION: New or increased mild to moderate peribronchial thickening as discussed above. Follow-up suggested. If symptoms persist or worsen, CT chest could be performed. Dictated by: Vu Ojeda M.D. on 02/02/2025 at 12:54 Approved by: Vu Ojeda M.D. on 02/02/2025 at 12:58
[2025-02-02 11:48] LABS: Add Manual Diff / Slide Review NO; Hematocrit 36.2 % (36-46); Hemoglobin 12.7 g/dL (12.0-16.0); Lymphocytes Absolute Auto 1600 /uL (1100-4500); Mean Corpuscular HGB Conc 35.1 % (30-36); Mean Corpuscular Hemoglobin 31.7 PG (26-34); Mean Corpuscular Volume 90.2 fL (80-100); Platelet Count 201 X10^3/uL (150-400)
[2025-02-02 11:53] LABS: Alanine Aminotransferase 22 IU/L (<35); Albumin 4.5 g/dL (3.5-5.0); Albumin Globulin Ratio 1.9 (1.0-2.8); Alkaline Phosphatase 70 U/L (38-126); Blood Urea Nitrogen 20 mg/dL (7-17); Calcium 9.5 mg/dL (8.4-10.2); Carbon Dioxide 24 mmol/L (22-32); Chloride 103 mmol/L (98-107); Estimated Glomerular Filt Rate > 60 mL/min (>60); Globulin 2.4 g/dL (1.7-4.1); Glucose 175 mg/dL (70-99); HEMOLYSIS < 15 (0-50); Potassium 4.3 mmol/L (3.4-5.1); Sodium 138 mmol/L (137-145); Total Protein 6.9 g/dL (6.3-8.2)
== END ==
PROVIDERS: PCP Family Medicine; Referring Provider Family Medicine; Visit Provider Family Medicine
DX: I42.9 Cardiomyopathy, unspecified (principal); I48.0 Paroxysmal atrial fibrillation; E87.6 Hypokalemia; Z95.0 Presence of cardiac pacemaker; R53.83 Other fatigue; R91.8 Other nonspecific abnormal finding of lung field
CPT/HCPCS: 36415; 71046; 80053; 85025

== ENCOUNTER → 2025-03-29 13:12 | Outpatient (CLI) | payer MEDICARE, SELFPAY ==
[2025-03-29 14:47] LABS: Appearance Urine UA CLOUDY; Bilirubin Urine UA NEGATIVE (NEGATIVE); Color Urine UA YELLOW; Glucose Urine UA NEGATIVE (Negative); Ketones Urine UA NEGATIVE (NEGATIVE); Leukocyte Esterase Urine UA 3+ (NEGATIVE); Nitrite Urine UA NEGATIVE (Negative); Occult Blood Urine UA 3+ (Negative); Protein Urine UA 2+ (Negative); Specific Gravity Urine UA 1.010 (1.000-1.035); Urobilinogen Urine UA 0.2 E.U./dL (0.2)
[2025-03-29 14:49] LABS: pH Urine UA 5.5 (4.5-8.0)
[2025-03-29 14:54] LABS: Culture Indicated Urine Specimen Cultured
[2025-03-29 16:29] LABS: Microalbumi Creatinin Ratio Ur 549.0 ug/mg CR (<30)
== END ==
PROVIDERS: PCP Family Medicine; Referring Provider Family Medicine; Visit Provider Family Medicine
DX: E03.9 Hypothyroidism, unspecified (principal); E78.5 Hyperlipidemia, unspecified; I10 Essential (primary) hypertension; R30.0 Dysuria; M35.3 Polymyalgia rheumatica
CPT/HCPCS: 81001; 82043; 82570; 87077; 87086; 87186

== ENCOUNTER → 2025-04-10 10:25 | Outpatient (CLI) | payer MEDICARE, SELFPAY | PROVIDERS: PCP Family Medicine; Visit Provider Family Medicine | DX: R30.0 Dysuria (principal) | CPT/HCPCS: 87086 ==

== ENCOUNTER → 2025-04-10 11:08 | Outpatient (CLI) | payer MEDICARE, SELFPAY ==
[2025-04-10 11:46] LABS: Hemoglobin A1C% w Est Avg Glu 6.6 % (4.0-6.0)
[2025-04-10 12:01] LABS: Alanine Aminotransferase 25 IU/L (<35); Albumin 4.6 g/dL (3.5-5.0); Albumin Globulin Ratio 1.8 (1.0-2.8); Alkaline Phosphatase 80 U/L (38-126); Blood Urea Nitrogen 18 mg/dL (7-17); Calcium 9.6 mg/dL (8.4-10.2); Carbon Dioxide 22 mmol/L (22-32); Chloride 104 mmol/L (98-107); Estimated Glomerular Filt Rate > 60 mL/min (>60); Globulin 2.5 g/dL (1.7-4.1); Glucose 189 mg/dL (70-99); HEMOLYSIS < 15 (0-50); Potassium 4.5 mmol/L (3.4-5.1); Sodium 137 mmol/L (137-145); Total Protein 7.1 g/dL (6.3-8.2)
[2025-04-11 20:37] LABS: Microalbumi Creatinin Ratio Ur 49.0 ug/mg CR (<30)
== END ==
PROVIDERS: PCP Family Medicine; Referring Provider Family Medicine; Visit Provider Family Medicine
DX: R73.9 Hyperglycemia, unspecified (principal); K52.839 Microscopic colitis, unspecified; E03.9 Hypothyroidism, unspecified; I10 Essential (primary) hypertension; R30.0 Dysuria
CPT/HCPCS: 36415; 80053; 82043; 82570; 83036; 87086

== ENCOUNTER → 2025-07-10 10:55 | Outpatient (CLI) | payer MEDICARE, SELFPAY | LOC: LAB 10:56 | PROVIDERS: PCP Family Medicine; Visit Provider Family Medicine | DX: R30.0 Dysuria (principal) | CPT/HCPCS: 87077; 87086; 87186 ==